=== PATIENT | female | born 1945 | race Caucasian/White ===

== ENCOUNTER 2021-05-04 08:46 | Day surgery (SDC) | payer OTHER, MEDICARE ==
[2021-05-04] MEDS ORDERED: Ringers Lactate 1,000 ML IV ONE (09:03)
[2021-05-04] MEDS ORDERED: ACETAMINOPHEN 500 MG TAB ONE (10:11)
[2021-05-04] MEDS ORDERED: propofoL 200 MG/20 ML VIAL IV ONE (10:26)
[2021-05-04] MEDS ORDERED: FENTANYL CITR 100 MCG/2 ML ONE (10:26)
[2021-05-04] MEDS ORDERED: MIDAZOLAM HCL 2 MG/2 ML INJ ONE (10:27)
[2021-05-04] MEDS ORDERED: LIDOCAINE 1% W/EPI 1:100,000 MDV 20 ML VIAL ONE (10:35)
[2021-05-04] MEDS ORDERED: dexAMETHasone 10 MG/ML VIAL ONE (11:10)
[2021-05-04] MEDS ORDERED: HOME MED 1 EA UNK (Fluticasone/Umeclidin/Vilanter [Trelegy Ellipta 200-62.5-25] Blst.W.Dev IH PRN (11:20)
[2021-05-04] MEDS ORDERED: HOME MED 1 EA UNK (Cetirizine Hcl [Zyrtec] 10 MG Capsule) PO PRN (11:20)
[2021-05-04] MEDS ORDERED: IBUPROFEN 200 MG TAB PO PRN (11:22)
--- NOTE | 2021-05-04 11:24 | P.BOP ---
Preoperative diagnosis: PMB Postoperative diagnosis: same Primary procedure: hysteroscopy d/c with myosure lite Production Counter: NONE,NONE Estimated blood loss: min Specimen: EMC Findings: empty cavity, slightly vascular lining, no masses Anesthesia: General Complications: None Transferred to: Recovery Room Condition: Good
[2021-05-04] MEDS ORDERED: ONDANSETRON 4 MG/2 ML VIAL ONE (11:26)
[2021-05-04] MEDS: FENTANYL CITR 100 MCG/2 ML ONE ×5 (11:34→12:29)
--- NOTE | 2021-05-04 11:51 | OP ---
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 Preoperative Diagnosis: Postmenopausal bleeding. Postoperative Diagnosis: Postmenopausal bleeding. Procedures Performed: Hysteroscopy, dilation and curettage with MyoSure Lite. Anesthesia: General with LMA. Specimens: Endometrial curettings. Findings: Cavity empty, slightly vascular lining. No masses. Condition: The patient's condition is stable. Estimated Blood Loss: Minimal. Brief History And Physical: The patient is an established patient in our practice, 76 years old, pre sented with postmenopausal bleeding, first episode. She was evaluated with transvaginal ultrasound. Endometrial stripe thickness was 6 mm. She was counseled on the need for endometrial sampling to ru le out atypia or malignancy. She does have risk factors, which include high BMI, so she was counsele d for getting the procedure here in the hospital for adequate sampling using the MyoSure Lite device that would definitely increase the amount of sample obtained at the D and C. She was consented after being counseled about the risks of bleeding and infection and perforation, br ought to the OR. Taken back to OR, placed in a supine fashion on the operating table. After general anesthesia was gi ankur, placed in dorsal lithotomy position using Stefan stirrups. Vulva and vagina prepped with Betadin e. Speculum placed to expose the cervix. Anterior lip grasped with 2 Allis clamps. [employer] diagno stic hysteroscope was introduced through the cervical canal and entered into the uterine cavity under direct visualization. Cavity was empty. The scope was pulled out, dilated to 16-[place]. Then, the MyoSure Lite scope was introduced after adequate visualization and priming the device. Then, the My oSure Lite cutting device was inserted through the operating channel and sampling was performed in th e entire endometrial cavity at the 360-degree fashion. No intracavitary masses. Both tubal ostia we ll visualized. The entire cavity appeared to be slightly vascular and after adequate sampling was pe rformed, device was taken out. All instruments were removed. EBL was minimal. Instrument, needle, and sponge counts were correct at the end of the case. The patient recovered from anesthesia and urban en to PACU in stable condition. She has a 1-week followup appointment at the office on pathology review. There is no atypia or malig alex. Then, plan is to observe her with a 6-month transvaginal ultrasound for a surveillance of her endometrial stripe and thereafter if no further bleeding occurs or no further thickening is noted, t hen just observation with re-evaluation when symptoms recur. If the endometrial tissue on pathology shows atypia or malignancy, then plan will be to offer a hysterectomy. If with atypia alone, then holden esteban can be offered the procedure here. She can also have an alternative of using levonorgestrel IUD fo r treatment and re-sampling, but if she is diagnosed with malignancy, then she will be referred to an oncologist. RACHEL Voice ID: [id number] Report ID: [id number]
[2021-05-04] MEDS ORDERED: IBUPROFEN 600 MG TAB PO SCH (12:00)
[2021-05-04 12:40] VITALS: O2SAT 99
[2021-05-04 13:31] VITALS: BP 136/72; TEMP 97.4
[2021-05-05] MEDS ORDERED: HOME MED 1 EA UNK (Rosuvastatin Calcium [Crestor] 20 MG Tablet) PO SCH (09:00)
[2021-05-05] MEDS ORDERED: HOME MED 1 EA UNK (Vit C/E/Zn/Coppr/Lutein/Zeaxan [Preservision Areds 2 Softgel] Capsule) PO SCH (09:00)
[2021-05-05] MEDS ORDERED: PANTOPRAZOLE 40MG TABLET PO SCH (09:00)
[2021-05-05] MEDS ORDERED: HOME MED 1 EA UNK (Cholecalciferol (Vitamin D3) [Vitamin D3] 25 MCG Capsule) PO SCH (09:00)
[2021-05-05] MEDS ORDERED: HOME MED 1 EA UNK (Lactobacillus Acidophilus [Probiotic] Capsule) PO SCH (09:00)
[2021-05-05] MEDS ORDERED: HOME MED 1 EA UNK (Multivitamin [Multivitamin] Tablet) PO SCH (09:00)
== END 2021-05-04 13:30 | disposition home or self-care (01) ==
LOC: OR 08:46
PROVIDERS: ATTEND Obstetrics & Gynecology
PROC: 0UJD8ZZ Inspection of Uterus and Cervix, Via Natural or Artificial Opening Endoscopic (ICD-10-PCS; 2021-05-04)
PROC: 0UDB7ZX Extraction of Endometrium, Via Natural or Artificial Opening, Diagnostic (ICD-10-PCS; principal; 2021-05-04 10:30)
DX: N95.0 Postmenopausal bleeding (principal); Z20.822 Contact with and (suspected) exposure to COVID-19
CPT/HCPCS: 58558; 88305; U0002; J2704; J2250; J3010 ×2; J1100; J7120; J2405

== ENCOUNTER 2021-09-10 12:14 | Emergency (ER) | payer OTHER, MEDICARE ==
--- OUTSIDE RECORDS SUMMARY | 2021-09-10 12:17 | XMS REPORT | Continuity of Care Document ---
:1945 Author Organization [facility] t Address [facility] [place] [address] Care Team Providers Name Role Phone Dori Attending Clinician Unavailable Krista Anand Attending Clinician Unavailable Crystal Attending Clinician Unavailable Grace Attending Clinician Unavailable Radha Borjas Attending Clinician Unavailable Krista Anand Admitting Clinician Unavailable Physician, Primary or Family Admitting Clinician Unavailabl e Payers Payer Name Policy Type Policy Number Effective Date Expiration Date S ource Problems This patient has no known problems. Allergies, Adverse Reactions, Alerts Allergy Allergy Status Severity Reaction(s) Onset Inactive Treating Comm ents Source Name Type Date Date Clinician No Known DA Active [facility] 08[facility] No Known DA Active [facility] All[facility]ie 08-11 s 00:[facility] No Known DA Active [facility] Allergie 07-29 [place] 00[place] [facility] No Known DA Active [facility] Allergie 04-25 s 00:00: [facility] No Known DA Active [facility] Allergie 04-25 s 00:00: [facility] codeine Adverse Active Caused her Comm on Reaction not to be Spiri t able to go - [facility] to [facility] Medications Ordered Filled Start Stop Current Ordering Indication Dosage Frequency Signature Comments Components Source Medication Medication Date Date Medication? Clinician (SIG) Name Name Ultram Ultram Yes Jacklyn 1 tablet Common Millender as needed [facility] Ciprofloxac Ciprofloxac Yes Jacklyn 1 tablet Common in HCl in HCl Millender [facility] Celebrex Celebrex Yes Jacklyn 1 capsule C ommon Millender with food [facility] Magnesium Magnesium Yes Jacklyn not Comm on Millender defined [facility] Prilosec Prilosec Yes Jacklyn 1 capsule C ommon Millender [facility] PreserVisio PreserVisio Yes Jacklyn not Common n AREDS 2 n AREDS 2 Millender defined [facility] Fish Oil Fish Oil Yes Jacklyn 1 capsule C ommon Millender [facility] Methocarbam Methocarbam Yes Jacklyn 1 tablet Common ol ol Millender [facility] Advil Advil Yes Jacklyn 1 tablet Common Millender with food Spiri t or milk as - [facility] needed [facility] Arnuity Arnuity Yes Jacklyn 1 puff Common Ellipta Ellipta Millender [facility] Meloxicam Meloxicam Yes Jacklyn 1 tablet Common Millender [facility] Amitiza Amitiza Yes Jacklyn 1 capsule Com mon Millender with food [facility] Voltaren Voltaren Yes Jacklyn not Common Millender defined [facility] Xarelto Xarelto Yes Jacklyn 1 tablet Comm on Millender with food [facility] ProAir HFA ProAir HFA Yes Jacklyn 2 puffs as Common Millender needed [facility] Vitamin E Vitamin E Yes Jacklyn 1 capsule Common Millender [facility] Gabapentin Gabapentin Yes Jacklyn 1 capsule Common Millender [facility] Topamax Topamax Yes Jacklyn 1 tablet Comm on Millender [facility] Probiotic Probiotic Yes Jacklyn 2 capsules Common Millender [facility] Levofloxaci Levofloxaci Yes Jacklyn 1 tablet Common n n Millender [facility] Qvar Qvar Yes Jacklyn 1 puff Common Millender [facility] Singulair Singulair Yes Jacklyn 1 tablet Common Millender in the [facility] Multivitami Multivitami Yes Jacklyn 2 tablets Common n n Millender [facility] Calcium Calcium Yes Jacklyn not Common Millender defined [facility] Mobic Mobic 2019- No Jacklyn 1 tablet Common 05-31 Millender as needed Spir it 00:00 for pain - [facility] : [facility] Procedures This patient has no known procedures. Encounters Start End Encounter Admission Attending Care Care Encounter Source Date/Time Date/Time Type Type Clinicians Facility Department ID 2021-09-02 Outpatient [facility] [place] [employer] [id number] Common 13:57:01 Madelaine [facility] 2021-07-29 Outpatient Cheng, HCATO HCATO [id number] [facility] 15:28:45 Inder [facility] [place] [facility] 2021-05-26 Outpatient Cheng, HCATO HCATO [id number] [facility] 14:14:27 Inder 92 [place] [facility] 2021-05-12 Outpatient Dori STLATASHALC [facility] [id number] Common 12:48:55 Madeliane 17051 [facility] 2021-05-12 Outpatient Crystal [facility] [employer] [id number] Common 11:53:20 Jacklyn 35217 [facility] 2021-09-06 2021-09-06 ambulatory STLC [facility] [id number] Common 00:00:00 00:00:00 [facility] 2021-08-12 2021-08-12 Outpatient EL Cheng, HCATO PAIN [id number] [facility] 12:44:00 12:44:00 Inder [id number] [place] [facility] 2021-08-12 2021-08-12 Outpatient EL Cheng, HCATO PAIN [id number] [facility] 12:44:00 12:44:00 Inder 00 [place] [facility] 2021-07-29 2021-07-29 Outpatient EL Cheng, HCATO PAIN [id number] [facility] 11:59:00 11:59:00 Inder [id number] [place] [facility] 2021-07-20 2021-07-20 ambulatory STLMLC STL[facility] [id number] Common 00:00:00 00:00:00 [facility] 2021-07-19 2021-07-19 ambulatory STLMLC STLMLC [id number] Common 00:00:00 00:00:00 [facility] 2021-07-12 2021-07-12 ambulatory STLMLC STLMLC [id number] Common 00:00:00 00:00:00 [facility] 2021-06-22 2021-06-22 ambulatory STLMLC STLMLC [id number] Common 00:00:00 00:00:00 [facility] 2021-06-09 2021-06-09 ambulatory STLMLC STLMLC [id number] Common 00:00:00 00:00:00 [facility] 2021-06-09 2021-06-09 ambulatory STLMLC STLMLC [id number] Common 00:00:00 00:00:00 [facility] 2021-05-26 2021-05-26 Outpatient EL Cheng, HCATO PAIN [id number] [facility] 11:17:00 11:17:00 Inder [id number] [place] [facility] 2021-05-17 2021-05-17 ambulatory STLMLC STLMLC [id number] Common 00:00:00 00:00:00 [facility] 2021-04-15 2021-04-15 ambulatory STLMLC STLMLC [id number] Common 00:00:00 00:00:00 [facility] 2021-03-16 2021-03-16 ambulatory STLMLC STLMLC [id number] Common 00:00:00 00:00:00 [facility] 2021-02-25 2021-02-25 ambulatory STLMLC STLMLC [id number] Common 00:00:00 00:00:00 [facility] 2020-11-25 2020-11-25 Outpatient STLMLC STLMLC [id number] Common 00:00:00 00:00:00 [facility] 2020-08-26 2020-08-26 Outpatient OBDULIA Pate [id number] [facility] 11:41:00 11:41:00 Win [id number] [place] [facility] 2020-08-11 2020-08-11 Outpatient STLMLC STLMLC [id number] Common 00:00:00 00:00:00 [facility] 2020-01-24 2020-01-24 Outpatient STLMLC STLMLC [id number] Common 00:00:00 00:00:00 [facility] 2019-09-30 2019-09-30 [facility] [id number] Common 13:00:00 13:00:[address] [facility] 2019-02-27 2019-02-27 [facility] [id number] Common 13:00:00 13:00:[address] [facility] 2018-12-19 2018-12-19 [facility] [id number] Common 16:32:00 16:32:[address] [facility] 2018-11-16 2018-11-16 [facility] [id number] Common 08:17:00 08:17:[address] [facility] 2018-11-14 2018-11-14 [facility] [id number] Common 14:40:00 14:40:[address] [facility] 2018-07-26 2018-07-26 [facility] [id number] Common 13:12:00 13:12:[address] [facility] 2018-05-16 2018-05-16 [facility] [id number] Common 14:23:00 14:23:[address] [facility] 2017-10-24 2017-10-24 [facility] [id number] Common 19:20:00 19:20:[address] [facility] [address] [facility] 2017-10-23 2017-10-23 [facility] [id number] Common 15:31:00 15:31:[address] [facility] [address] [facility] 2017-10-16 2017-10-16 [facility] [id number] Common 15:18:00 15:18:[address] [facility] [address] [facility] 2017-08-23 2017-08-23 Outpatient [facility] [id number] Common 21:29:00 21:29:[address] [facility] [address] [facility] 2017-08-23 2017-08-23 Outpatient [place] [facility] [id number] Common 13:30:00 13:30:[address] [facility] [address] [facility] Results Test Description Test Time Test Comments Results Result [facility] Comments - XR FLUORO FOR 2021-08-12 SPINE INJ 17:24:00 [facility] 1945 Sex: F Patient Name: ALONSO POLK Unit No: [id number] EXAMS: CPT CODE: [id number] XR FLUORO FOR SPINE INJ 60052 LUMBAR FACET INJECTION DIAGNOSTIC REFERRAL PHYSICIAN: None PREOPERATIVE DIAGNOSIS: Lumbar spondylosis without myelopathy or radiculopathy POSTOPERATIVE DIAGNOSIS: Lumbar spondylosis without myelopathy or radiculopathy PROCEDURE PERFORMED: Fluoroscopically guided needle localization of the bilateral L4/5 and left L3/4 facets with arthrograms and diagnostic injection of local anesthetic and steroid. FINDINGS: Good flow of dye into all 3 facet joints. Significant arthritic changes noted in all of the above. Contrast is seen to fill all 3 joint however. Preinjection VAS 2/10. Postinjection VAS 0/10. Steroid response pending follow-up. ESTIMATED BLOOD LOSS: Minimal ANESTHESIA: TIVA COMPLICATIONS: None DETAILS OF PROCEDURE: After obtaining stable vital signs, informed consent and IV access patient was taken to the fluoroscopy suite where the patient was placed in a prone position with all extremities padded and appropriate monitors placed. The patient was sterilely prepped prepped and draped over the lumbosacral spine. Using fluoroscopic visualization, the insertion sites were marked for a paravertebral approach to each joint. Using standard technique, a 25 -gauge needle was inserted into each joint capsule without paresthesias. At all levels, aspiration was negative for clear serous fluid. Isovue-300 contrast 0.2 mL was injected to produce each arthrogram. There were no signs of intravascular or intrathecal uptake. Bupivicaine 0.75% 0.17 mL with Lidocaine 4% 0.17 ml and triamcinolone 26 mg was then injected incrementally into each joint. There were no signs of intravascular or intrathecal uptake. The patient's vital signs remained stable. All needles were removed and the patient was taken to the PACU in good condition. Image: Image 1 Image: Image 2 Image: Image 3 Image: Image 4 at 1724 Reported and signed by: INDER ANAND MD [facility] NAME: FELICITAS,ALONSOCHELA RIVERA [address] [facility] PHYS: Inder [address] MD [place], [place] [address] : 1945 AGE: 76 SEX: F LOC: VandanaLISA PHONE #: [phone] EXAM DATE: 08/12/2021 STATUS: REG [facility] FAX #: [phone] RAD #: D/C DT PAGE 1 Signed Report (CONTINUED) Patient Name: ABDON POLKCHELA RIVERA Unit No: [id number] EXAMS: CPT CODE: [id number] XR FLUORO FOR SPINE INJ 33748 <Continued> CC: Technologist: Sahhla Otto(R) Transcribed D/ (1723) RadhaA2 [facility] NAME: ALONSO POLK [address] [facility] PHYS: Inder Way MD [place] [address] : 1945 AGE: 76 SEX: F LOC: FOUZIA PHONE #: [phone] EXAM DATE: 08/12/2021 STATUS: REG [facility] FAX #: [phone] RAD #: D/C DT PAGE 2 Signed Report Patient Name: ALONSO POLK Unit No: [id number] EXAMS: CPT CODE: [id number] XR FLUORO FOR SPINE INJ 30102 <Continued> Orig Print D/T: S: 08/12/2021 (573) [facility] NAME: ALONSO POLK [address] [place] [address] PHYS: Inder [address] MD [place] [address] : 1945 AGE: 76 SEX: F LOC: FOUZIA PHONE #: [phone] EXAM DATE: 08/12/2021 STATUS: REG [facility] FAX #: [phone] RAD #: D/C DT PAGE 3 Signed Report - XR FLUORO FOR 2021-07-29 SPINE INJ 15:25:00 [facility] 1945 Sex: F Patient Name: ALONSO POLK Unit No: [id number] EXAMS: CPT CODE: [id number] XR FLUORO FOR SPINE INJ 56204 LUMBAR DISCOGRAM AND INTRADISCAL INJECTION REFERRING PHYSICIAN: Dr. Borjas PREOPERATIVE DIAGNOSIS: Discogenic low back pain POSTOPERATIVE DIAGNOSIS: Discogenic low back pain. PROCEDURE PERFORMED: 1. Fluoroscopically guided needle localization of the L1/2 L3/4 L5/S1 discs with provocative discography and therapeutic intradiscal injection of local anesthetic and steroid. FINDINGS: The L5/S1 disc level is 80-90% collapsed. There is diffuse changes throughout this area with endplate spurring. The L3/4 disc level is approximately 30-40% collapsed with diffuse degenerative change throughout this level of disc as well without significant endplate spurring. The L1/2 level is approximately 50-60% collapsed with inferior 1 and superior to endplate spurring again with diffuse degenerative changes seen in the contrast pattern. Provocation injection of all 3 was negative. Preinjection VAS 6/10. Postinjection VAS 0/10. Steroid response pending follow-up. ANTIBIOTIC: Clindamycin IV and intradiscal. ESTIMATED BLOOD LOSS: Minimal ANESTHESIA: TIVA COMPLICATIONS: None DETAILS OF PROCEDURE: After obtaining stable vital signs, informed consent and IV access, with no contraindications to proceeding, the patient received preoperative antibiotics and was taken to the fluoroscopy suite where the patient was placed in a prone position with all extremities padded and appropriate monitors placed. The patient was sterilely prepped and draped over the lumbosacral spine. Under fluoroscopic visualization the selected discs were visualized and the insertion sites were marked for paramedian approaches. Using standard double needle no-touch technique, a 20 gauge spinal introducer needle was advanced to the level of the facets and a curved 25-gauge needle was then passed through the introducer and advanced into the center of each disc without paresthesias. Isovue 300 contrast 0.2 ml with clindamycin 150 mg/mL, 0.2 ml was then injected to produce each discogram. Bupivacaine 0.75% 0.33 mL with lidocaine 4% 0.33 ml with triamcinolone 27 mg was then injected, provocation was recorded and the needles were removed. There were no signs of intravascular or intrathecal uptake. The patient's vital signs remained stable. The patient was taken to the PACU in good condition. [facility] NAME: ALONSO POLK [address] [facility] PHYS: Inder Way MD [place], [place] [address] : 1945 AGE: 76 SEX: F LOC: FOUZIA PHONE #: [phone] EXAM DATE: 07/29/2021 STATUS: REG [facility] FAX #: [phone] RAD #: D/C DT PAGE 1 Signed Report (CONTINUED) Patient Name: ALONSO POLK Unit No: [id number] EXAMS: CPT CODE: [id number] XR FLUORO FOR SPINE INJ 20026 <Continued> Image: Image 1 Image: Image 2 Image: Image 3 Image: Image 4 at 1525 Reported and signed by: INDER ANAND MD CC: Technologist: Shahla Otto(R) Transcribed D/ (1525) KelsyJMA2 [facility] NAME: ALONSO POLK [address] [facility] PHYS: Inder Way MD [place], [place] [address] : 1945 AGE: 76 SEX: F LOC: FOUZIA PHONE #: [phone] EXAM DATE: 07/29/2021 STATUS: REG [facility] FAX #: [phone] RAD #: D/C DT PAGE 2 Signed Report Patient Name: ALONSO POLK Unit No: [id number] EXAMS: CPT CODE: [id number] XR FLUORO FOR SPINE INJ 56456 <Continued> Orig Print D/T: S: 07/29/2021 (1528) [facility] NAME: ALONSO POLKHAW [address] [facility] PHYS: Inder Way MD [place], [place] [address] : 1945 AGE: 76 SEX: F LOC: FOUZIA PHONE #: [phone] EXAM DATE: 07/29/2021 STATUS: REG [facility] FAX #: [phone] RAD #: D/C DT PAGE [address] SPECT ( EG, 2021-07-16 HEAD, NECK, 14:35:55 CHEST, PELVIS) [facility] [[id number]] ALONSO POLK : 1945 Sex: F CLINICAL INDICATION: M47.812 Spondylosis without myelopathy or radiculopathy, cervical musparA20.36 Other intervertebral disc degeneration, lumbar regionMODALITY: Discovery NM/CT 670TECHNIQUE: 25 mCi Tc 99m MDP are injected IV. After a suitable time delay, whole body imaging images were obtained. SPECT imaging of the cervical and lumbar spine is performed with computer and physician-assisted 2-D and 3-D reconstruction. Co-registered low dose limited diagnostic CT images are obtained at the level of SPECT imaging.Computed Tomography Dose Index: 5.44 mGy.FINDINGS:COMPARISON : Fusion CT exam.CT Comments: None.Symmetric bilateral renal function is observed.Mild to moderate periodontal uptake is noted bilateral maxilla.Mild to moderate arthritic changes are most prominent bilateral shoulders. Bilateral total knees are visible.SPECT CT fusion imaging of the cervical spine demonstrates mild to moderate versus moderate median atlanto-axial joint uptake. Moderate bilateral C5-6 intervertebral disc uptake is seen. Mild to moderate uptake is noted at the left C4-5 facet and left C7-T1 facet. Mild to moderate versus moderate uptake is present at the right T2 costovertebral junction. Moderate uptake is noted within the right anterior lateral bridging osteophytes at the mid and lower thoracic spine.SPECT CT fusion imaging of the lumbar spine demonstrates moderate uptake right lateral L5-S1 intervertebral disc, moderate uptake left L 34 intervertebral disc, moderate uptake right L1-2 intervertebral disc. Mild to moderate right L3-4 facet, moderate left L3-4 facet, moderate left L4-5 facet uptake is otherwise most conspicuous.IMPRESSION: See comments above.PQRS 147: 3570F (For office use only). - XR FLUORO FOR 2021-05-26 SPINE INJ 14:11:00 [facility] [place] [facility] 1945 Sex: F Patient Name: ALONSO POLK Unit No: [id number] EXAMS: CPT CODE: [id number] XR FLUORO FOR SPINE INJ 22344 LUMBAR EPIRADICULAR INJECTION REFERRAL PHYSICIAN: Dr. Borjas PREOPERATIVE DIAGNOSIS: Lumbar Radiculitis POSTOPERATIVE DIAGNOSIS: Lumbar radiculitis with degenerative disc disease and endplate disease PROCEDURES PERFORMED: Fluoroscopically guided needle localization of the bilateral L5 and bilateral S1 spinal nerves with transforaminal epidurograms and epidural injection of local anesthetic and steroid. FINDINGS: Good flow of dye through all 4 neuroforamen. L5 needles were limited secondary to body habitus. Lateral view also very limited by body habitus. Preinjection VAS 8/10. Postinjection VAS 0/10. Steroid response pending follow-up. ESTIMATED BLOOD LOSS: Minimal ANESTHESIA: TIVA COMPLICATIONS: None DETAILS OF PROCEDURE: After obtaining stable vital signs, informed consent and IV access, with no contraindications, the patient was taken to the operating room and placed in a prone position with all extremities padded and appropriate monitors placed. The patient was sterilely prepped and draped over the lumbosacral spine. Using fluoroscopic visualization the insertion sites were marked for paravertebral approaches and using standard technique, a 22 gauge needle was advanced to the base of each pedicle without paresthesias. Isovue-300 contrast 0.2 mL of was injected incrementally with frequent negative aspirations to produce each epidurogram. There were no signs of intravascular or intrathecal uptake. Bupivicaine 0.75% 0.25 mL with lidocaine 4% 0.25 mL and Decadron 5 mg was then incrementally injected with frequent negative aspirations and again there were no signs of intravascular or intrathecal uptake. The needles were removed and the patient was taken to the PACU in good condition. Image: Image 1 Image: Image 2 Image: Image 3 at 1411 Reported and signed by: INDER ANAND MD CC: Technologist: Shahla Otto(R) Transcribed D/ (1410) KelsyJMA2 [facility] NAME: ALONSO POLK [address] [place] [address] PHYS: In[address] [place], [place] [address] : 1945 AGE: 76 SEX: F LOC: FOUZIA PHONE #: [phone] EXAM DATE: 05/26/2021 STATUS: REG [facility] FAX #: [phone] RAD #: D/C DT PAGE 1 Signed Report Patient Name: ALONSO POLK Unit No: [id number] EXAMS: CPT CODE: [id number] XR FLUORO FOR SPINE INJ 12082 <Continued> Orig Print D/T: S: 05/26/2021 (6499) [facility] NAME: ALONSO POLK [address] [place] [address] PHYS: In[address] [place], [place] [address] : 1945 AGE: 76 SEX: F LOC: FOUZIA PHONE #: [phone] EXAM DATE: 05/26/2021 STATUS: REG [facility] FAX #: [phone] RAD #: D/C DT PAGE 2 Signed Report - MRI L-SPINE W/O 2020-08-26 CONT 16:26:00 [facility] : 1945 Sex: F Patient Name: ALONSO POLK Unit No: [id number] EXAMS: CPT CODE: [id number] MRI L-SPINE W/O CONT 61208 DIAGNOSIS: 1. At L1-2 there is a mild retrolisthesis and associated disc bulging which lateralizes 3 mm right posterior lateral and foraminal. Moderate right foraminal narrowing is seen with mild left-sided stenosis. No central canal stenosis is seen. Facet degeneration is present. 2. At L2-3 there is 2 mm of disc bulging with mild foraminal narrowing. Slight narrowing of the central canal is present with facet and ligamentum flavum hypertrophic and degenerative change. 3. At L3-4 there is 2 mm of broad-based disc with mild foraminal narrowing on the left and slight narrowing on the right. Mild narrowing of the central canal is seen with facet and ligamentum flavum hypertrophic and degenerative change and there is bilateral lateral recess stenosis. 4. At L4-5 there is a slight degenerative spondylolisthesis with endplate spur formation and disc bulging. Mild foraminal narrowing is seen. Mild narrowing of the central canal is present with bilateral lateral recess stenosis. Facet and ligamentum flavum hypertrophic and degenerative changes are present. 5. At L5-S1 there is disc bulging and endplate spur formation with moderate right and mild left foraminal narrowing. Facet degeneration is seen without central canal stenosis. COMMENT: COMPARISON: No prior exams available. Scans were performed in the sagittal and axial planes utilizing T1, T2 and inversion recovery images. Endplate and disc degeneration is present at all levels. Disc configurations are as described. Spondylitic changes are as noted. The conus is in the expected location. The description these findings assumes a normal count of 5 lumbar type vertebra. at 1626 Reported and signed by: Isaiah Casarez MD CC: Win Borjas MD Technologist: STEPHANIE KLEIN.MRI,CT Transcribed D/ (1625) JavadL [facility] NAME: ALONSO POLK GALLIANO [address] [place] [address] PHYS: HARCLAUDETTE.Win Rosenbaum MD : 1945 AGE: 75 SEX: F [place] [address] LOC: Y.MRI PHONE #: [phone] EXAM DATE: 08/26/2020 STATUS: REG CLI FAX #: [phone] RAD #: D/C DT PAGE 1 Signed Report Patient Name: ALONSO POLK GALLIANO Unit No: [id number] EXAMS: CPT CODE: [id number] MRI L-SPINE W/O CONT 07111 <Continued> Orig Print D/T: S: 08/26/2020 (180) [facility] NAME: FELICITASABDON SILVEIRA[address] PHYS: HARJO.Caitlin - Win Borjas MD : 1945 AGE: 75 SEX: F [place] [address] LOC: Y.MRI PHONE #: [phone] EXAM DATE: 08/26/2020 STATUS: REG CLI FAX #: [phone] RAD #: D/C DT PAGE 2 Signed Report
[2021-09-10] MEDS ORDERED: HYDROCODONE/APAP 10/325 TAB ONE (13:54)
--- NOTE | 2021-09-10 14:30 | RAD REPORT ---
EXAM DESCRIPTION: RAD - Hip Left 2 View - 09/10/2021 2:23 pm CLINICAL HISTORY: PAIN COMPARISON: No comparisons FINDINGS/IMPRESSION: No acute fracture. No malalignment. Mild to moderate left acetabular degenerati ve changes.
--- NOTE | 2021-09-10 15:35 | ER ---
Nurse's Notes [facility] Name: Rodolfo Arredondo Age: 76 yrs Sex: Female : 1945 Arrival Date: 09/10/2021 Time: 12:18 Bed DIS3 Private MD: Madelaine Meadows Diagnosis: Pain in left hip Presentation: 09/10 13:46 Chief complaint: Patient states: left hip pain. iw 13:46 Acuity: CY 4 iw 16:02 Coronavirus screen: At this time, the client does not indicate any symptoms associated ap3 with coronavirus-19. Ebola Screen: No symptoms or risks identified at this time. Initial Sepsis Screen: Does the patient meet any 2 criteria? No. Patient's initial sepsis screen is negative. Does the patient have a suspected source of infection? No. Patient's initial sepsis screen is negative. Risk Assessment: Do you want to hurt yourself or someone else? Patient reports no desire to harm self or others. Onset of symptoms is unknown. 16:02 Method Of Arrival: Wheelchair ap3 Triage Assessment: 16:02 General: Appears in no apparent distress. Behavior is calm, cooperative, appropriate ap3 for age. Pain: Complains of pain in left hip. Historical: - Allergies: 16:01 No Known Allergies; ap3 - PMHx: 16:01 Asthma; Back pain; constipation; hot flashes; dry eyes; High Cholesterol; macular ap3 degeneration; - Immunization history:: Adult Immunizations unknown. - Social history:: Smoking status: unknown. Screenin:01 Abuse screen: Denies threats or abuse. Nutritional screening: No deficits noted. ap3 Tuberculosis screening: No symptoms or risk factors identified. 16:02 Fall Risk Fall in past 12 months (25 points). Secondary diagnosis (15 points) No IV (0 ap3 pts). Ambulatory Aid- Crutches/Cane/Walker (15 pts). Gait- Weak (10 pts.). Mental Status- Oriented to own ability (0 pts). Vital Signs: 13:29 Pulse 87; Resp 18; Temp 97.3; Pulse Ox 100% ; Weight 132 kg (R); Height 5 ft. 4 in. iw (162.56 cm) (R); Pain 6/10; 13:35 BP 136 / 51; iw 13:29 Body Mass Index 49.95 (132.00 kg, 162.56 cm) ED Course: 12:18 Patient arrived in ED. am2 12:18 Madelaine Meadows FNP-C is Private Physician. am2 12:38 Mohsen Doyle PA is PHCP. cp 12:38 Darren Bourgeois MD is Attending Physician. cp 13:39 Patient has correct armband on for positive identification. mb7 13:39 Warm blanket given. mb7 13:46 Raven Richards, RN is Primary Nurse. iw 13:47 Triage completed. iw 14:23 XRAY Hip LEFT 2 view In Process Unspecified. EDMS 16:02 No provider procedures requiring assistance completed. Patient did not have IV access ap3 during this emergency room visit. 16:03 Arm band placed on right wrist. ap3 Administered Medications: 13:50 Drug: Hydrocodone-Acetaminophen (10 mg-650 mg) 1 tabs Route: PO; iw Medication: 16:02 VIS not applicable for this client. ap3 Outcome: 15:34 Discharge ordered by MD. cp 16:01 Discharged to home via wheelchair. ap3 16:01 Condition: good 16:01 Discharge instructions given to patient, Instructed on discharge instructions, follow up and referral plans. medication usage, Demonstrated understanding of instructions, follow-up care, medications, Prescriptions given X 2. 16:03 Patient left the ED. ap3 Signatures: Dispatcher [employer] EDRaven Acevedo, RN RN iw Mohsen Doyle PA PA Gaby Mejia am2 Gaby Pack RN RN ap3 Christiana Wells mb7 Corrections: (The following items were deleted from the chart) 15:56 15:56 Patient has correct armband on for positive identification. mb7 mb7
--- NOTE | 2021-09-10 15:35 | EDPHYS ---
Physician Documentation [facility] Name: Rodolfo Arredondo Age: 76 yrs Sex: Female : 1945 Arrival Date: 09/10/2021 Time: 12:18 Bed DIS3 Private MD: Madelaine Meadows ED Physician Darren Bourgeois HPI: 09/10 13:40 This 76 yrs old Female presents to ER via Unassigned with complaints of Leg Pain. cp 13:40 The patient presents with pain, that is acute. cp Historical: - Allergies: 16:01 No Known Allergies; ap3 - PMHx: 16:01 Asthma; Back pain; constipation; hot flashes; dry eyes; High Cholesterol; macular ap3 degeneration; - Immunization history:: Adult Immunizations unknown. - Social history:: Smoking status: unknown. Vital Signs: 13:29 Pulse 87; Resp 18; Temp 97.3; Pulse Ox 100% ; Weight 132 kg (R); Height 5 ft. 4 in. iw (162.56 cm) (R); Pain 6/10; 13:35 BP 136 / 51; iw 13:29 Body Mass Index 49.95 (132.00 kg, 162.56 cm) iw MDM: 15:34 Patient medically screened. cp 09/10 13:32 Order name: XRAY Hip LEFT 2 view; Complete Time: 15:21 cp 09/10 15:21 Interpretation: Report reviewed. cp Administered Medications: 13:50 Drug: Hydrocodone-Acetaminophen (10 mg-650 mg) 1 tabs Route: PO; iw Disposition Summary: 09/10/21 15:34 Discharge Ordered Location: Home cp Problem: new cp Symptoms: have improved cp Condition: Stable cp Diagnosis - Pain in left hip cp Followup: cp - With: Private Physician - When: 2 - 3 days - Reason: Recheck today's complaints Discharge Instructions: - Discharge Summary Sheet cp - Hip Pain cp Forms: - Medication Reconciliation Form cp - Thank You Letter cp - Antibiotic Education cp - Prescription Opioid Use cp Prescriptions: - Mobic 7.5 mg Oral Tablet - take 1 tablet by ORAL route once daily take with food; 20 tablet; Refills: 0, cp Product Selection Permitted - Ultracet 37.5-325 mg Oral Tablet - take 1 tablet by ORAL route every 6 hours - for up to 5 days; do not exceed 8 cp tablets per day.; 20 tablet; Refills: 0, Product Selection Permitted Addendum: 09/12/2021 23:53 Co-signature as Attending Physician, Darren Bourgeois MD. r n Signatures: Dispatcher [employer] Raven Asher, RN Darren Navarrete MD MD rn Page, Corey, PA PA cp Prokisch, Amanda, RN RN ap3
[2021-09-10 16:09] VITALS: TEMP 97.3; O2SAT 100
[2021-09-10 16:10] VITALS: BP 136/51
== END 2021-09-10 16:03 | disposition home or self-care (01) ==
LOC: ER 12:14
DX: M25.552 Pain in left hip (principal)
CPT/HCPCS: 99283

== ENCOUNTER 2021-10-28 23:16 | Emergency (ER) | payer OTHER, MEDICARE ==
--- NOTE | 2021-10-29 02:07 | ER ---
Nurse's Notes [facility] Name: Rodolfo Arredondo Age: 76 yrs Sex: Female : 1945 Arrival Date: 10/28/2021 Time: 23:18 Bed 14 Private MD: Diagnosis: Fall due to bumping against object;Contusion of right lower leg;Contusion of right foot Presentation: 10/28 23:42 Chief complaint: Patient states: I had fallen at home while i was getting dressed and i kd3 was holding onto the walker when the walker tipped and i fell. I hit my head on the dresser but that doesn't hurt and i did not have any LOC. the only thing that hurts is my right leg and foot. I had fallen on top of it. I am not on any blood thinners. Coronavirus screen: Vaccine status:. Ebola Screen: No symptoms or risks identified at this time. Initial Sepsis Screen: Does the patient meet any 2 criteria? No. Patient's initial sepsis screen is negative. Does the patient have a suspected source of infection? No. Patient's initial sepsis screen is negative. Risk Assessment: Do you want to hurt yourself or someone else? Patient reports no desire to harm self or others. Onset of symptoms was October 28, 2021. 23:42 Method Of Arrival: Wheelchair kd3 23:42 Acuity: CY 3 kd3 Triage Assessment: 23:46 General: Appears in no apparent distress. Behavior is calm, cooperative. Pain: kd3 Complains of pain in lateral aspect of right calf and dorsum of right foot. Historical: - Home Meds: 23:46 acetaminophen 325 mg Oral tab 2 tabs every 4-6 hours [Active]; celecoxib 200 mg Oral kd3 cap 1 cap once daily [Active]; Fish Oil 1000mg [place] 3 300mg daily [Active]; Estroven Oral [Active]; Magnesium 500mg daily [Active]; Metamucil Tabs 5 tab twice a day [Active]; Colace 100 mg Oral cap 2 caps once daily [Active]; PreserVision AREDS 2 056-675-69-1 fz-[id number]-[id number]-mg Oral cap twice a day [Active]; simvastatin 20 mg Oral tab 1 tab once daily [Active]; Restasis 0.05 % ophthalmic dpet 1 drop 2 times per day [Active]; Singulair 10 mg Oral tab 1 tab once daily [Active]; tramadol 50 mg Oral tab [Active]; Vitamin D3 2,000 unit Oral cap daily [Active]; topiramate 100 mg Oral CSpX 1 cap twice a day [Active]; multivitamin Oral tab daily [Active]; vitamin E 400 unit Oral cap daily [Active]; Calcium- Vitamin D3 1200mg/1000IU daily [Active]; Arnuity Ellipta 200 mcg/actuation inhalation dsdv 1 puff once daily [Active]; - PMHx: 23:46 Asthma; Back pain; constipation; High Cholesterol; hot flashes; macular degeneration; kd3 dry eyes; - Immunization history:: Adult Immunizations up to date. - Social history:: Smoking status: unknown. Screenin:47 Abuse screen: Denies threats or abuse. Denies injuries from another. Nutritional kd3 screening: No deficits noted. Tuberculosis screening: No symptoms or risk factors identified. Fall Risk Fall in past 12 months (25 points). Gait- Weak (10 pts.). Assessment: 23:48 Neuro: Parrish Agitation-Sedation Scale (RASS): 0 - Alert and Calm Level of kd3 Consciousness is awake, alert, obeys commands, Oriented to person, place, time, situation. Respiratory: Airway is patent Trachea midline Respiratory effort is even, unlabored, Respiratory pattern is regular, symmetrical. Vital Signs: 23:42 BP 115 / 73; Pulse 105; Resp 18; Temp 98.3; Pulse Ox 98% on R/A; Weight 131.54 kg; kd3 Height 5 ft. 4 in. (162.56 cm); 23:54 BP 138 / 90; Pulse 94; Resp 18; Pulse Ox 98% ; kd3 10/29 01:02 Pulse 98; Resp 16; Pulse Ox 100% ; kd3 01:02 BP 147 / 68; kd3 02:18 BP 135 / 62; Pulse 98; Resp 18; Pulse Ox 100% on R/A; kd3 10/28 23:42 Body Mass Index 49.78 (131.54 kg, 162.56 cm) kd3 ED Course: 10/28 23:18 Patient arrived in ED. bp1 23:26 Shravan Borrego MD is Attending Physician. 7 23:46 Triage completed. kd3 23:46 Arm band placed on right wrist. kd3 23:47 Patient has correct armband on for positive identification. kd3 23:47 No provider procedures requiring assistance completed. kd3 23:54 Roxann Goodrich, RN is Primary Nurse. kd3 10/29 00:34 Tib Fib Right XRAY In Process Unspecified. EDMS 00:34 Ankle Right 3 View XRAY In Process Unspecified. EDMS 00:34 Foot Right 3 View XRAY In Process Unspecified. EDMS 01:08 CT Head Brain wo Cont In Process Unspecified. EDMS 02:05 Luis Felix MD is Referral Physician. [facility] Administered Medications: No medications were administered Medication: 10/28 23:55 VIS not applicable for this client. kd3 Outcome: 10/29 02:07 Discharge ordered by . [facility] 02:22 Patient left the ED. kd3 Signatures: Dispatcher [employer] EDMT Danica Ding Maurice, MD MD [facility] Roxann Goodrich, RN RN kd3
--- NOTE | 2021-10-29 02:07 | EDPHYS ---
Physician Documentation [facility] Name: Rodolfo Arredondo Age: 76 yrs Sex: Female : 1945 Arrival Date: 10/28/2021 Time: 23:18 Bed 14 Private MD: ED Physician Shravan Borrego HPI: 10/28 23:49 This 76 yrs old Female presents to ER via Wheelchair with complaints of Fall Injury. [facility] 23:49 Details of fall: The patient fell from an upright position, while walking. Onset: The [facility] symptoms/episode began/occurred today, at 21:00. Associated injuries: The patient sustained injury to the head, abrasion, lateral right lower leg and right foot, painful injury. Severity of symptoms: At their worst the symptoms were moderate, earlier today, in the emergency department the symptoms have improved, moderately. States that she fell due to her walker tipping over while she was walking. States that her head grazed against furniture and right lower leg and foot hit floor. Denies any LOC or symptoms prior to falling. She took Tramadol and Gabapentin prior to coming to the ER.. Historical: - Home Meds: 23:46 acetaminophen 325 mg Oral tab 2 tabs every 4-6 hours [Active]; celecoxib 200 mg Oral kd3 cap 1 cap once daily [Active]; Fish Oil 1000mg [place] 3 300mg daily [Active]; Estroven Oral [Active]; Magnesium 500mg daily [Active]; Metamucil Tabs 5 tab twice a day [Active]; Colace 100 mg Oral cap 2 caps once daily [Active]; PreserVision AREDS 2 [id number] vh-jotd-jz-mg Oral cap twice a day [Active]; simvastatin 20 mg Oral tab 1 tab once daily [Active]; Restasis 0.05 % ophthalmic dpet 1 drop 2 times per day [Active]; Singulair 10 mg Oral tab 1 tab once daily [Active]; tramadol 50 mg Oral tab [Active]; Vitamin D3 2,000 unit Oral cap daily [Active]; topiramate 100 mg Oral CSpX 1 cap twice a day [Active]; multivitamin Oral tab daily [Active]; vitamin E 400 unit Oral cap daily [Active]; Calcium- Vitamin D3 1200mg/1000IU daily [Active]; Arnuity Ellipta 200 mcg/actuation inhalation dsdv 1 puff once daily [Active]; - PMHx: 23:46 Asthma; Back pain; constipation; High Cholesterol; hot flashes; macular degeneration; kd3 dry eyes; - Immunization history:: Adult Immunizations up to date. - Social history:: Smoking status: unknown. ROS: 23:49 Constitutional: Negative for fever, chills, and weight loss, Eyes: Negative for injury, mh7 pain, redness, and discharge, ENT: Negative for injury, pain, and discharge, Neck: Negative for injury, pain, and swelling, Cardiovascular: Negative for chest pain, palpitations, and edema, Respiratory: Negative for shortness of breath, cough, wheezing, and pleuritic chest pain, Abdomen/GI: Negative for abdominal pain, nausea, vomiting, diarrhea, and constipation, Back: Negative for injury and pain, : Negative for injury, bleeding, discharge, and swelling, Skin: Negative for injury, rash, and discoloration, Neuro: Negative for headache, weakness, numbness, tingling, and seizure, Psych: Negative for depression, anxiety, suicide ideation, homicidal ideation, and hallucinations, Allergy/Immunology: Negative for hives, rash, and allergies, Endocrine: Negative for neck swelling, polydipsia, polyuria, polyphagia, and marked weight changes, Hematologic/Lymphatic: Negative for swollen nodes, abnormal bleeding, and unusual bruising. Exam: 23:49 Constitutional: This is a well developed, well nourished patient who is awake, alert, mh7 and in no acute distress. Head/Face: Normocephalic, atraumatic. Eyes: Pupils equal round and reactive to light, extra-ocular motions intact. Lids and lashes normal. Conjunctiva and sclera are non-icteric and not injected. Cornea within normal limits. Periorbital areas with no swelling, redness, or edema. ENT: Nares patent. No nasal discharge, no septal abnormalities noted. Tympanic membranes are normal and external auditory canals are clear. Oropharynx with no redness, swelling, or masses, exudates, or evidence of obstruction, uvula midline. Mucous membranes moist. 23:49 Neck: Trachea midline, no thyromegaly or masses palpated, and no cervical lymphadenopathy. Supple, full range of motion without nuchal rigidity, or vertebral point tenderness. No Meningismus. Chest/axilla: Normal chest wall appearance and motion. Nontender with no deformity. No lesions are appreciated. Cardiovascular: Regular rate and rhythm with a normal S1 and S2. No gallops, murmurs, or rubs. Normal PMI, no JVD. No pulse deficits. Respiratory: Lungs have equal breath sounds bilaterally, clear to auscultation and percussion. No rales, rhonchi or wheezes noted. No increased work of breathing, no retractions or nasal flaring. Abdomen/GI: Soft, non-tender, with normal bowel sounds. No distension or tympany. No guarding or rebound. No evidence of tenderness throughout. Back: No spinal tenderness. No costovertebral tenderness. Full range of motion. Skin: Warm, dry with normal turgor. Normal color with no rashes, no lesions, and no evidence of cellulitis. 23:49 ENT: TM's: hemotympanum, is not appreciated, bilaterally. 23:49 Musculoskeletal/extremity: Extremities: noted in the lateral aspect right lower leg and dorsal right foot: pain, tenderness, ROM: no acute changes, Circulation is intact in all extremities. Sensation intact. Compartment Syndrome exam of affected extremity: is normal. no numbness, no tingling, no sensation deficit, no palor, no weak pulses, Joints: All joints appear normal with full range of motion. Tendon exam: specific tendon testing normal through active and passive range of motion 23:49 Neuro: Orientation: is normal, Mentation: is normal, Memory: is normal, Cranial nerves: grossly normal, Cerebellar function: is grossly normal, Motor: is normal, Sensation: no obvious gross deficits, Gait: not tested. seizure activity, is not displayed by the patient, Abnormal movements: there are no abnormal movements. Vital Signs: 23:42 BP 115 / 73; Pulse 105; Resp 18; Temp 98.3; Pulse Ox 98% on R/A; Weight 131.54 kg; kd3 Height 5 ft. 4 in. (162.56 cm); 23:54 BP 138 / 90; Pulse 94; Resp 18; Pulse Ox 98% ; kd3 07/ 01:02 Pulse 98; Resp 16; Pulse Ox 100% ; kd3 01:02 BP 147 / 68; kd3 02:18 BP 135 / 62; Pulse 98; Resp 18; Pulse Ox 100% on R/A; kd3 10/28 23:42 Body Mass Index 49.78 (131.54 kg, 162.56 cm) 3 MDM: 02:04 Differential diagnosis: abrasion, closed head injury, contusion, fracture, sprain, mh7 strain. Data reviewed: vital signs, nurses notes, radiologic studies, CT scan, plain films. Data interpreted: Pulse oximetry: on room air is 100 %. Interpretation: normal. Counseling: I had a detailed discussion with the patient and/or guardian regarding: the historical points, exam findings, and any diagnostic results supporting the discharge/admit diagnosis, the presence of at least one elevated blood pressure reading (>120/80) during this emergency department visit, radiology results, the need for outpatient follow up, a orthopedic surgeon, to return to the emergency department if symptoms worsen or persist or if there are any questions or concerns that arise at home. Response to treatment: the patient's symptoms have markedly improved after treatment. 02:07 Patient medically screened. [facility] 10/28 23:46 Order name: Tib Fib Right XRAY [facility] 10/28 23:46 Order name: Ankle Right 3 View XRAY 7 10/28 23:46 Order name: Foot Right 3 View XRAY 7 10/29 00:02 Order name: CT Head Brain wo Cont 7 10/29 01:53 Order name: Orthopedic shoe; Complete Time: 02:18 mh7 Administered Medications: No medications were administered Disposition Summary: 10/29/21 02:07 Discharge Ordered Location: Home [facility] Problem: new 7 Symptoms: have improved [facility] Condition: Stable 7 Diagnosis - Fall due to bumping against object mh7 - Contusion of right lower leg mh7 - Contusion of right foot 7 Followup: 7 - With: Private Physician - When: 2 - 3 days - Reason: Worsening of condition, Recheck today's complaints, Continuance of care, Re-evaluation by your physician Followup: 7 - With: Luis Felix MD - When: 1 - 2 days - Reason: Worsening of condition, Recheck today's complaints, Continuance of care, Re-evaluation by your physician Discharge Instructions: - Discharge Summary Sheet 7 - Fall Prevention in the Home, Adult, [id number] mh7 - Foot Contusion, [id number] 7 Forms: - Medication Reconciliation Form 7 - Thank You Letter 7 - Antibiotic Education 7 - Prescription Opioid Use [facility] Signatures: Dispatcher [employer] Shravan Vicente MD MD 7 Roxann Goodrich RN RN kd3
[2021-10-29 02:28] VITALS: TEMP 98.3
[2021-10-29 02:32] VITALS: O2SAT 100
[2021-10-29 02:33] VITALS: BP 135/62
--- NOTE | 2021-10-29 17:17 | RAD REPORT ---
EXAM DESCRIPTION: RAD - Tib Fib Right - 10/29/2021 12:33 am CLINICAL HISTORY: 76 years Female trauma COMPARISON: None TECHNIQUE: 2 images of the right tibia and fibula were obtained. FINDINGS: Right total knee prosthesis. No acute fractures seen. Normal bony mineralization. No erosi ve or lytic lesions seen. Soft tissue calcifications in region of knee. IMPRESSION: No acute fracture or dislocation seen. Electronically signed by: Angelita Jurado MD 10/29/2021 12:43 AM CDT Due to temporary technical issues with the PACS/Fluency reporting system, reports are being signed by the in house radiologists without review as a courtesy to insure prompt reporting. The interpreting radiologist is fully responsible for the content of the report.
--- NOTE | 2021-10-29 17:22 | RAD REPORT ---
EXAM DESCRIPTION: RAD - Ankle Right 3 View - 10/29/2021 12:33 am CLINICAL HISTORY: trauma. COMPARISON: None. TECHNIQUE: Three views of the right foot and ankle were obtained: AP, oblique, and lateral radiograp hs. FINDINGS: No acute osseous abnormality is identified. No ankle mortise widening. The talar dome appe ars intact. Tiny chronic Achilles and plantar fascial enthesophytes. Incidentally noted bipartite med ial sesamoid. Osteopenic appearance of the bones. IMPRESSION: No acute osseous abnormality identified in the foot or ankle. Electronically signed by: Maris Young MD 10/29/2021 12:47 AM CDT Due to temporary technical issues with the PACS/Fluency reporting system, reports are being signed by the in house radiologists without review as a courtesy to insure prompt reporting. The interpreting radiologist is fully responsible for the content of the report.
--- NOTE | 2021-10-29 17:24 | RAD REPORT ---
EXAM DESCRIPTION: RAD - Foot Right 3 View - 10/29/2021 12:33 am CLINICAL HISTORY: Trauma. COMPARISON: None. TECHNIQUE: Three views of the right foot and ankle were obtained: AP, oblique, and lateral radiograp hs. FINDINGS: No acute osseous abnormality is identified. No ankle mortise widening. The talar dome appe ars intact. Tiny chronic Achilles and plantar fascial enthesophytes. Incidentally noted bipartite med ial sesamoid. Osteopenic appearance of the bones. IMPRESSION: No acute osseous abnormality identified in the foot or ankle. Electronically signed by: Maris Young MD 10/29/2021 12:47 AM CDT Due to temporary technical issues with the PACS/Fluency reporting system, reports are being signed by the in house radiologists without review as a courtesy to insure prompt reporting. The interpreting radiologist is fully responsible for the content of the report.
--- NOTE | 2021-10-29 17:25 | RAD REPORT ---
EXAM DESCRIPTION: CT - Head Brain Wo Cont - 10/29/2021 7:38 am CLINICAL HISTORY: Head trauma, minor TECHNIQUE: Axial computed tomography images of the head/brain without intravenous contrast. Sagitt al and coronal reformatted images were created and reviewed. This CT exam was performed using one o r more of the following dose reduction techniques: automated exposure control, adjustment of the mA and/or kV according to patient size, and/or use of iterative reconstruction technique. COMPARISON: No relevant prior studies available. FINDINGS: Brain: Bilateral periventricular and subcortical white matter hypodensity most likely re lated to chronic microvascular angiopathy. No hemorrhage. Ventricles: Unremarkable. No ventriculomegaly. Bones/joints: Unremarkable. No acute fracture. Soft tissues: Unremarkable. Vasculature: There is atherosclerotic disease of the internal carotid arteries bilaterally. Sinuses: Unremarkable as visualized. No acute sinusitis. Mastoid air cells: Unremarkable as visualized. No mastoid effusion. IMPRESSION: 1. No acute intracranial or extra-axial abnormality. 2. Other findings as above. Electronically signed by: Sherrill Fischer MD 10/29/2021 1:37 AM CDT Due to temporary technical issues with the PACS/Fluency reporting system, reports are being signed by the in house radiologists without review as a courtesy to insure prompt reporting. The interpreting radiologist is fully responsible for the content of the report.
== END 2021-10-29 02:22 | disposition home or self-care (01) ==
LOC: ER 23:16
DX: S80.11XA Contusion of right lower leg, initial encounter (principal); S90.31XA Contusion of right foot, initial encounter; W18.00XA Striking against unspecified object with subsequent fall, initial encounter; E78.00 Pure hypercholesterolemia, unspecified
CPT/HCPCS: 70450; 99283

== ENCOUNTER 2021-12-06 09:12 | Observation (INO) | payer OTHER, MEDICARE ==
[2021-12-06 10:00] LABS: Absolute Lymphocytes (CBC) 0.8 K/uL (0.7-4.9); Hematocrit 40.8 % (36.0-45.0); Lymphocytes % 17.4 % (15.3-44.8); MPV 7.2 fL (7.6-11.3); RBC Red Blood Cell Count 4.39 M/uL (3.86-4.86)
[2021-12-06 10:17] LABS: Potassium 3.7 mmol/L (3.5-5.1); Troponin High Sensitivity 11.7 pg/mL (<58.9)
[2021-12-06 10:19] LABS: SARS-CoV-2 Antigen Rapid Res Negative (Negative)
--- NOTE | 2021-12-06 10:43 | RAD REPORT ---
EXAM DESCRIPTION: RAD - Chest Single View - 12/06/2021 10:02 am CLINICAL HISTORY: hypotension, sob COMPARISON: Abdomen 1 View (KUB) dated 10/03/2018; Chest Pa And Lat (2 Views) dated 06/04/2018; Abdome n 1 View (KUB) dated 10/02/2017; Abdomen 1 View (KUB) dated 09/23/2016 FINDINGS: Lines: None. Lungs: No evidence of edema or pneumonia. Pleural: No significant pleural effusions or pneumothorax. Cardiac: The heart size is within normal limits. Bones: No acute fractures. Other: IMPRESSION: No acute cardiopulmonary disease.
--- NOTE | 2021-12-06 11:01 | RAD REPORT ---
EXAM DESCRIPTION: CT - Chest For Pe Angio - 12/06/2021 10:43 am CLINICAL HISTORY: Pulmonary embolism (PE) suspected, positive D-dimer COMPARISON: No comparisons TECHNIQUE: Dynamically enhanced axial 3 mm thick images of the chest were obtained during administra tion of <100> mL Isovue 370 IV contrast. Coronal and oblique reconstruction images were generated and reviewed. Exam utilizes a protocol for optimal evaluation of pulmonary arterial tree. Maximum intensity projections 3D imaging was utilized All CT scans are performed using dose optimization technique as appropriate and may include automated exposure control or mA/KV adjustment according to patient size. FINDINGS: Chest Wall: No suspicious thyroid nodules or pathologic lymphadenopathy. Lungs: No acute abnormality. Pleura: No significant effusions or pneumothorax. Mediastinum/sherrie: No pathologic lymphadenopathy. Pulmonary arteries/Aorta: Tiny nonocclusive thrombus in the right main pulmonary artery. This is more of a linear defect. The subsegmental pulmonary arteries are not well evaluated due to suboptimal con trast opacification. No aortic aneurysm. Heart: No significant pericardial effusion. Normal heart size. Upper abdomen: No acute abnormality. Bones: No acute abnormality. IMPRESSION: Positive for pulmonary embolism with small clot burden. Linear nonocclusive filling defe ct in the right main pulmonary artery may be acute but could represent a subacute or chronic pulmonar y embolus. Discussed with Dr. Bourgeois by Dr. Prieot at 1052 on 12/06/21.
[2021-12-06] MEDS ORDERED: ENOXAPARIN 100 MG/ML SYR SQ ONE (11:27)
[2021-12-06] MEDS ORDERED: ENOXAPARIN 30 MG/0.3 ML SQ ONE (11:27)
--- NOTE | 2021-12-06 11:29 | ER ---
Nurse's Notes [facility] Name: Rodolfo Arredondo Age: 76 yrs Sex: Female : 1945 Arrival Date: 12/06/2021 Time: 09:18 Bed 24 Private MD: Diagnosis: Pulmonary embolism without acute cor pulmonale;Muscle weakness (generalized);Dehydration Presentation: 12/06 09:09 Chief complaint: EMS states: call came in for a patient stuck on the toilet, further jg9 details included progressive generalized weakness x 2 weeks and sob on exertion. Coronavirus screen: Vaccine status: Patient reports receiving the 2nd dose of the covid vaccine. Ebola Screen: Patient negative for fever greater than or equal to 101.5 degrees Fahrenheit, and additional compatible Ebola Virus Disease symptoms Patient denies exposure to infectious person. Patient denies travel to an Ebola-affected area in the 21 days before illness onset. No acute neurological deficit is noted. Pre-hospital glucose is not applicable to this patient. Initial Sepsis Screen: Does the patient meet any 2 criteria? Systolic BP < 90 mmHg. Yes Does the patient have a suspected source of infection? No. Patient's initial sepsis screen is negative. Risk Assessment: Do you want to hurt yourself or someone else? Patient reports no desire to harm self or others. Onset of symptoms is unknown. 09:09 Method Of Arrival: EMS: [facility] jg9 09:09 Acuity: CY 3 jg9 Triage Assessment: 09:10 The onset of the patients symptoms was more than six hours ago. General: Appears in no jg9 apparent distress. Behavior is calm, cooperative. Pain: Complains of pain in back. Neuro: Reports weakness in right arm, left arm, right leg and left leg. 09:23 Cardiovascular: No deficits noted. Respiratory: No deficits noted. GI: No deficits jg9 noted. : No deficits noted. Derm: No deficits noted. Musculoskeletal: Reports weakness in left leg and right leg and left arm and right arm. Stroke Activation: Physician: Stroke Attending; Name: ; Notified At: ; Arrived At: Physician: Chief Stroke Resident; Name: ; Notified At: ; Arrived At: Physician: Stroke Resident; Name: ; Notified At: ; Arrived At: Physician: ED Attending; Name: ; Notified At: ; Arrived At: Physician: ED Resident; Name: ; Notified At: ; Arrived At: 09:09 n/a jg9 Historical: - Allergies: :24 No Known Allergies; jg9 - PMHx: :22 Asthma; Back pain; constipation; dry eyes; High Cholesterol; hot flashes; macular jg9 degeneration; - Immunization history:: Adult Immunizations up to date. - Social history:: Smoking status: Patient denies any tobacco usage or history of. - Family history:: not pertinent. - Hospitalizations: : No recent hospitalization is reported. Screenin:24 Abuse screen: Denies threats or abuse. Denies injuries from another. Nutritional jg9 screening: No deficits noted. Tuberculosis screening: No symptoms or risk factors identified. Fall Risk Fall in past 12 months (25 points). Assessment: 10:00 Reassessment: No changes from previously documented assessment. Patient and/or family jg9 updated on plan of care and expected duration. Pain level reassessed. Patient is alert, oriented x 3, equal unlabored respirations, skin warm/dry/pink. 11:30 Reassessment: patient took at home pain medication, tramadol \T\ gabapentin-provider jg9 aware. 13:00 Reassessment: No changes from previously documented assessment. Patient and/or family jg9 updated on plan of care and expected duration. Pain level reassessed. Patient is alert, oriented x 3, equal unlabored respirations, skin warm/dry/pink. 14:00 Reassessment: Patient and/or family updated on plan of care and expected duration. Pain jg9 level reassessed. Patient is alert, oriented x 3, equal unlabored respirations, skin warm/dry/pink. 15:00 Reassessment: Patient and/or family updated on plan of care and expected duration. Pain jg9 level reassessed. Patient is alert, oriented x 3, equal unlabored respirations, skin warm/dry/pink. 16:00 Reassessment: Patient appears in no apparent distress at this time. No changes from jg9 previously documented assessment. Patient and/or family updated on plan of care and expected duration. Pain level reassessed. Patient is alert, oriented x 3, equal unlabored respirations, skin warm/dry/pink. 17:00 Reassessment: Patient and/or family updated on plan of care and expected duration. Pain jg9 level reassessed. Patient is alert, oriented x 3, equal unlabored respirations, skin warm/dry/pink. 18:00 Reassessment: Patient and/or family updated on plan of care and expected duration. Pain jg9 level reassessed. Patient is alert, oriented x 3, equal unlabored respirations, skin warm/dry/pink. Vital Signs: 09:09 BP 91 / 73 LA (/reg); Pulse 96; Resp 17 S; Temp 96.5(A); Pulse Ox 93% on R/A; Weight jg9 117.93 kg (R); Height 5 ft. 5 in. (165.10 cm) (R); Pain 0/10; 09:15 BP 79 / 61 LA (/reg); Pulse 94; Resp 17; Pulse Ox 98% ; jg9 09:43 BP 131 / 79 LA (/lg); Pulse 90; Resp 13 S; Pulse Ox 98% on R/A; jg9 09:45 BP 152 / 77 LA (/lg); Pulse 87; Resp 13 S; Pulse Ox 99% on R/A; jg9 10:00 BP 161 / 71 LA (/lg); Pulse 85; Resp 17 S; Pulse Ox 99% ; jg9 11:45 BP 127 / 94; Pulse 92; Resp 25 S; Pulse Ox 97% on R/A; jg9 13:00 BP 160 / 74; Pulse 87; Resp 18 S; Pulse Ox 100% on R/A; jg9 14:15 BP 168 / 85; Pulse 87; Resp 13 S; Pulse Ox 100% on R/A; jg9 17:00 BP 137 / 73; Pulse 90; Resp 12 S; Pulse Ox 97% on R/A; jg9 18:00 BP 165 / 73; Pulse 83; Resp 16 S; Pulse Ox 98% ; jg9 09:09 Body Mass Index 43.26 (117.93 kg, 165.10 cm) j9 ED Course: 09:18 Patient arrived in ED. rn 09:18 Darren Bourgeois MD is Attending Physician. rn 09:18 Lisa Velarde, JOANA is Primary Nurse. jg9 09:22 Triage completed. jg9 09:24 Arm band placed on left wrist. jg9 09:24 Patient has correct armband on for positive identification. Placed in gown. Bed in low jg9 position. Call light in reach. Side rails up X2. 09:25 Maintain EMS IV. Dressing intact. Good blood return noted. Site clean \T\ dry. Gauge \T\ jg 9 site: 20 r ac. 10:03 XRAY Chest (1 view) In Process Unspecified. EDMS 10:19 No apparent distress. Resting quietly. jg9 10:45 Chest For Pe Angio In Process Unspecified. EDMS 11:29 Venancio Guallpa MD is Hospitalizing Provider. rn 14:34 No apparent distress. Resting quietly. Awaiting bed assignment. jg9 18:22 No provider procedures requiring assistance completed. jg9 18:22 Patient admitted, IV remains in place. jg9 19:23 Primary Nurse role handed off by Lisa Velarde, JOANA mw2 12/07 17:40 Luis Alberto Daily RN is Primary Nurse. jl7 Administered Medications: 12/06 09:26 Drug: NS 0.9% 500 ml Route: IV; Rate: bolus; Site: right antecubital; jg9 11:13 Follow up: IV Status: Completed infusion; IV Intake: 500ml jg9 11:20 Drug: Lovenox (enoxaparin) 1 mg/kg Route: Sub-Q; Site: left lower abdomen; jg9 13:06 Follow up: Response: No adverse reaction jg9 Medication: 18:22 VIS not applicable for this client. jg9 Intake: 11:13 IV: 500ml; Total: 500ml. jg9 Outcome: 11:29 Decision to Hospitalize by Provider. rn 18:22 Admitted to ER Hold. Please see [facility] for further documentation. jg9 18:22 Condition: stable 12/07 17:40 Patient left the ED. jl7 Signatures: Dispatcher [employer] EDMS Darren Bourgeois MD MD rn Leal, Jahala, RN RN jl7 Shabana Clements mw2 Lisa Velarde RN RN jg9 Corrections: (The following items were deleted from the chart) 12/06 10:13 09:09 BP 91 / 73; Pulse 96bpm; Resp 17bpm; Spontaneous; Pulse Ox 93% RA; Temp 96.5F jg9 Axillary; 117.93 kg Reported; Height 5 ft. 5 in. Reported; BMI: 43.2; Pain 0/10; jg9 : 09:45 BP 152 / 77 R Arm; Pulse 87bpm; Resp 13bpm; Spontaneous; Pulse Ox 99% RA; jg9 jg9 09:43 BP 131 / 79; Pulse 90bpm; Resp 13bpm; Spontaneous; Pulse Ox 98% RA; jg9 jg9
--- NOTE | 2021-12-06 11:29 | EDPHYS ---
Physician Documentation [facility] Name: Rodolfo Arredondo Age: 76 yrs Sex: Female : 1945 Arrival Date: 12/06/2021 Time: 09:18 Bed 24 Private MD: ED Physician Darren Bourgeois HPI: 12/06 09:35 This 76 yrs old Female presents to ER via EMS with complaints of Weakness. rn 09:35 The patient presents to the emergency department with weakness of the entire body, rn generalized weakness. Onset: The symptoms/episode began/occurred 2 week(s) ago. Context: occurred at home, occurred while the patient was at rest. Associated signs and symptoms: Pertinent positives: weakness, Pertinent negatives: fever, neck stiffness, paresthesias, seizure, syncope. Severity of symptoms: At their worst the symptoms were moderate in the emergency department the symptoms are unchanged. The patient has not experienced similar symptoms in the past. The patient has not recently seen a physician. Pt reports 1-2 weeks of generalized weakness and fatigue. Today, spent 2 hours on toilet unable to get up. Usually able to get herself off toilet using her arms and her toilet stand, and not able to today. Denies fever/vomiting/chest pain/abd pain. Does report dyspnea on exertion for several months. No blood in stool. . Historical: - Allergies: 09:24 No Known Allergies; jg9 - PMHx: 09:22 Asthma; Back pain; constipation; dry eyes; High Cholesterol; hot flashes; macular jg9 degeneration; - Immunization history:: Adult Immunizations up to date. - Social history:: Smoking status: Patient denies any tobacco usage or history of. - Family history:: not pertinent. - Hospitalizations: : No recent hospitalization is reported. ROS: 09:35 Constitutional: Negative for fever, chills, and weight loss, Eyes: Negative for injury, rn pain, redness, and discharge, Neck: Negative for injury, pain, and swelling, Cardiovascular: Negative for chest pain, palpitations, and edema, Respiratory: Negative for cough, wheezing, and pleuritic chest pain, Abdomen/GI: Negative for abdominal pain, nausea, vomiting, and constipation, Back: Negative for injury and pain, MS/Extremity: Negative for injury and deformity, Skin: Negative for injury, rash, and discoloration, Neuro: Negative for headache, numbness, tingling, and seizure. Exam: 09:35 Constitutional: Overweight female, no acute distress. Head/Face: Normocephalic, rn atraumatic. Eyes: Periorbital areas with no swelling, redness, or edema. ENT: very dry MM Cardiovascular: Regular rate and rhythm. No pulse deficits. Respiratory: No increased work of breathing, no retractions or nasal flaring. Abdomen/GI: Soft, non-tender Skin: Warm, dry MS/ Extremity: Pulses equal, no cyanosis. Neurovascular intact. Full, normal range of motion. Equal circumference. Neuro: Awake and alert, GCS 15, oriented to person, place, time, and situation. Motor strength 4/5 in all extremities. Sensory grossly intact. 10:39 ECG was reviewed by the Attending Physician. rn Vital Signs: 09:09 BP 91 / 73 LA (/reg); Pulse 96; Resp 17 S; Temp 96.5(A); Pulse Ox 93% on R/A; Weight 9 117.93 kg (R); Height 5 ft. 5 in. (165.10 cm) (R); Pain 0/10; 09:15 BP 79 / 61 LA (/reg); Pulse 94; Resp 17; Pulse Ox 98% ; jg9 09:43 BP 131 / 79 LA (/lg); Pulse 90; Resp 13 S; Pulse Ox 98% on R/A; jg9 09:45 BP 152 / 77 LA (/lg); Pulse 87; Resp 13 S; Pulse Ox 99% on R/A; jg9 10:00 BP 161 / 71 LA (/lg); Pulse 85; Resp 17 S; Pulse Ox 99% ; jg9 11:45 BP 127 / 94; Pulse 92; Resp 25 S; Pulse Ox 97% on R/A; jg9 13:00 BP 160 / 74; Pulse 87; Resp 18 S; Pulse Ox 100% on R/A; jg9 14:15 BP 168 / 85; Pulse 87; Resp 13 S; Pulse Ox 100% on R/A; jg9 17:00 BP 137 / 73; Pulse 90; Resp 12 S; Pulse Ox 97% on R/A; jg9 18:00 BP 165 / 73; Pulse 83; Resp 16 S; Pulse Ox 98% ; jg9 09:09 Body Mass Index 43.26 (117.93 kg, 165.10 cm) jg9 MDM: 09:18 Patient medically screened. rn 11:28 Data reviewed: vital signs, nurses notes, lab test result(s), EKG, radiologic studies, rn CT scan, plain films, and as a result, I will admit patient. Counseling: I had a detailed discussion with the patient and/or guardian regarding: the historical points, exam findings, and any diagnostic results supporting the discharge/admit diagnosis, lab results, radiology results, the need for further work-up and treatment in the hospital. Response to treatment: There is no appreciated change of the patient's symptoms at this time, and as a result, I will admit patient. Admission orders: after a detailed discussion of the patient's condition and case, the admit orders are written by me. 12/06 09:19 Order name: Basic Metabolic Panel; Complete Time: 10:18 rn 12/06 09:19 Order name: CBC with Diff; Complete Time: 10:18 rn 12/06 09:19 Order name: D-Dimer; Complete Time: 10:18 rn 12/06 09:19 Order name: NT PRO-BNP; Complete Time: 10:18 rn 12/06 09:19 Order name: Troponin HS; Complete Time: 10:18 rn 12/06 09:19 Order name: SARS RAPID; Complete Time: 10:53 rn 12/06 09:19 Order name: XRAY Chest (1 view); Complete Time: 10:53 rn 12/06 09:19 Order name: Urine Microscopic Only; Complete Time: 15:30 rn 12/06 10:19 Order name: CT Chest For PE Angio rn 12/06 12:17 Order name: Urine Dipstick-Ancillary; Complete Time: 15:30 EDMS 12/06 17:29 Order name: CBC with Automated Diff EDMS 12/06 17:29 Order name: CBC with Automated Diff EDMS 12/06 17:29 Order name: Comprehensive Metabolic Panel EDNH 12/06 17:29 Order name: Comprehensive Metabolic Panel EDNH 12/06 09:19 Order name: EKG; Complete Time: 09:20 rn 12/06 09:19 Order name: Cardiac monitoring; Complete Time: 09:25 rn 12/06 09:19 Order name: EKG - Nurse/Tech; Complete Time: 09:41 rn 12/06 09:19 Order name: IV Saline Lock; Complete Time: 09:25 rn 12/06 09:19 Order name: Labs collected and sent; Complete Time: 09:52 rn 12/06 09:19 Order name: O2 Sat Monitoring; Complete Time: 09:25 rn 12/06 09:19 Order name: Urine Dipstick-Ancillary (obtain specimen); Complete Time: 13:04 rn 12/06 10:23 Order name: Chest For Pe Angio; Complete Time: 11:07 EDMS 12/06 17:29 Order name: Heart Healthy EDMS 12/06 17:29 Order name: Echo with Doppler EDMS 12/06 17:29 Order name: Echo with Doppler EDMS 12/06 17:31 Order name: Extrem Venous W Compress Shaheed EDMS EC:39 Rate is 90 beats/min. Rhythm is regular. QRS [place] is Normal. MO interval is normal. QRS rn interval is normal. QT interval is normal. No Q waves. T waves are Normal. No ST changes noted. Clinical impression: Normal ECG. Interpreted by me. Reviewed by me. Administered Medications: 09:26 Drug: NS 0.9% 500 ml Route: IV; Rate: bolus; Site: right antecubital; jg9 11:13 Follow up: IV Status: Completed infusion; IV Intake: 500ml jg9 11:20 Drug: Lovenox (enoxaparin) 1 mg/kg Route: Sub-Q; Site: left lower abdomen; jg9 13:06 Follow up: Response: No adverse reaction jg9 Disposition Summary: 12/06/21 11:29 Hospitalization Ordered Hospitalization Status: Inpatient Admission rn Provider: Venancio Guallpa rn Condition: Stable rn Problem: new rn Symptoms: are unchanged rn Bed/Room Type: Standard rn Location: [facility] ER HOLD(12/06/21 18:22) Room Assignment: ERHOLD-(12/06/21 18:22) Diagnosis - Pulmonary embolism without acute cor pulmonale rn - Muscle weakness (generalized) rn - Dehydration rn Forms: - Medication Reconciliation Form rn - SBAR form rn Signatures: [facility]patcher [facility] Darren Bourgeois MD MD rn Smirch, Shelby, RN RN ss Gilmore, Jennifer, RN RN jg9 Corrections: (The following items were deleted from the chart) 13:06 09:19 Oxygen Per Protocol ordered. joel jg9 : 11:29 Telemetry/MedSurg (Inpatient) joel acosta 11: joel acosta
[2021-12-06 12:16] LABS: Urine Blood Trace-intact (Negative); Urine Glucose Negative (Negative); Urine Protein Negative (Negative); Urine Specific Gravity 1.015 (1.005-1.030)
[2021-12-06 12:36] LABS: Urine Bacteria <20 /HPF (<20); Urine RBC <5 /HPF (None Seen)
[2021-12-06] MEDS ORDERED: ONDANSETRON 4 MG/2 ML VIAL IV PRN (17:26)
[2021-12-06] MEDS ORDERED: ACETAMINOPHEN 500 MG TAB PO PRN (17:26)
[2021-12-06 17:59] VITALS: BMI 43.2
[2021-12-06] MEDS ORDERED: NA CHLORIDE 0.9% 1,000 ML IV SCH (18:00)
--- NOTE | 2021-12-06 19:45 | RAD REPORT ---
EXAM DESCRIPTION: USExtrem Venous W Compress Bil12/06/2021 6:21 pm CLINICAL HISTORY: Leg pain COMPARISON: 2016 FINDINGS: The left common femoral, superficial femoral, popliteal and posterior tibial veins are co mpressible and demonstrate augmentation. Doppler demonstrates good flow. Echogenic material consistent with thrombus is present within the right popliteal and right posterior veins. Veins are partially compressible. Grayscale, color and spectral analysis performed on all vessels IMPRESSION: Acute thrombus right popliteal and right posterior tibial veins.
[2021-12-06] MEDS ORDERED: APIXABAN 5 MG TABLET ONE ×2 (21:24→21:36)
[2021-12-06] MEDS: APIXABAN 5 MG TABLET PO SCH (21:26)
[2021-12-06] MEDS ORDERED: NA CHLORIDE 0.9% 1,000 ML ONE (23:41)
--- NOTE | 2021-12-07 | P.HP ---
Certification for Inpatient Patient admitted to: Observation With expected LOS: <2 Midnights Patient will require the following post-hospital care: None Practitioner: I am a practitioner with admitting privileges, knowledge of patient current condition, hospital course, and medical plan of care. Services: Services provided to patient in accordance with Admission requirements found in Title 42 Section 412.3 of the Code of Federal Regulations Patient History Date of Service: 12/06/21 Reason for admission: PULMONARY EMBOLISM History of Present Illness: PATIENT IS A 76-YEAR-OLD FEMALE WHO IS MORBIDLY OBESE WITH A HISTORY OF LYMPHEDEMA WHO CAME TO THE HOSPITAL WITH DYSPNEA AND SHORTNESS OF BREATH. PATIENT CAME TO THE HOSPITAL FOR EVALUATION. PATIENT WAS WORKED UP IN THE EMERGENCY ROOM AND CT PE PROTOCOL REVEALED PULMONARY EMBOLISM. PATIENT WAS STARTED ON ANTICOAGULATION. PATIENT WILL BE GIVEN ORAL ELIQUIS. PATIENT WILL BE ADMITTED FOR OBSERVATION. Allergies No Known Allergies Allergy (Verified 12/06/21 15:02) Home Medications: Pantoprazole [Protonix Tab] 40 mg PO DAILY 04/29/21 Gabapentin 2 cap PO BID 12/06/21 Tramadol HCl [Ultram] 1 tab PO Q4HR 12/06/21 - Past Medical/Surgical History Has patient received pneumonia vaccine in the past: Yes Diabetic: No -: Arthritis -: Morbid Obesity -: Hyperlipidemia -: GERD -: Asthma -: Bilateral knee sx -: Right rotator cuff sx -: Tubaligation - Family History Father Family History: Reviewed- Non-Contributory - Social History Smoking Status: Never smoker Alcohol use: No CD- Drugs: No Caffeine use: No Review of Systems 10-point ROS is otherwise unremarkable Physical Examination - Vital Signs Temperature: 98 F Blood Pressure: 140/80 Pulse: 80 Respirations: 18 Pulse Ox (%): 96 - Physical Exam General: Alert, In no apparent distress, Oriented x3 HEENT: Atraumatic, PERRLA, Mucous membr. moist/pink, EOMI, Sclerae nonicteric Neck: Supple, 2+ carotid pulse no bruit, No LAD, Without JVD or thyroid abnormality Respiratory: Clear to auscultation bilaterally, Normal air movement Cardiovascular: Regular rate/rhythm, Normal S1 S2, No murmurs Gastrointestinal: Normal bowel sounds, Soft and benign, Non-distended, No tenderness Musculoskeletal: No tenderness, Swelling Integumentary: No rashes, Tenderness/swelling Neurological: Normal gait, Normal speech, Normal strength at 5/5 x4 extr, Normal tone, Normal affect Lymphatics: No axilla or inguinal lymphadenopathy - Studies Laboratory Data (last 24 hrs) 12/06/21 09:45: WBC 4.40, Hgb 13.5, Hct 40.8, Plt Count 271 12/06/21 09:45: Sodium 142, Potassium 3.7, BUN 13, Creatinine 0.89, Glucose 109 H Assessment & Plan - Problems (Diagnosis) (1) Pulmonary embolism Current Visit: Yes Status: Acute (2) DVT (deep venous thrombosis) Current Visit: Yes Status: Acute (3) Lymphedema Current Visit: No Status: Acute (4) Morbid obesity with BMI of 45.0-49.9, adult Current Visit: No Status: Acute - Plan -ANTI COAGULATION -DOPPLER OF LOWER EXTREMITY WITH RIGHT POPLITEAL AND POSTERIOR TIBIAL DVT -PHYSICAL THERAPY EVALUATION -ECHOCARDIOGRAM -MONITOR OXYGENATION CLOSELY; O2 PER PROTOCOL -GI PROPHYLAXIS Discharge Plan: Home Plan to discharge in: 24 Hours - Advance Directives Does patient have a Living Will: No Does patient have a Durable POA for Healthcare: No - Code Status/Comfort Care Code Status Assessed: Yes Code Status: Full Code Critical Care: No Time Spent Managing PTS Care (In Minutes): 45
[2021-12-07] MEDS: MORPHINE 2 MG/ML SYR IV PRN ×3 (00:59→17:03)
[2021-12-07] MEDS ORDERED: MORPHINE 2 MG/ML SYR ONE ×4 (01:06→17:06)
[2021-12-07 02:57] LABS: Absolute Lymphocytes (CBC) 1.2 K/uL (0.7-4.9); Hematocrit 38.4 % (36.0-45.0); Lymphocytes % 27.8 % (15.3-44.8); MCV 92.5 fL (80-100); MPV 7.8 fL (7.6-11.3); RBC Red Blood Cell Count 4.15 M/uL (3.86-4.86)
[2021-12-07 03:03] LABS: Bilirubin Total 0.8 mg/dL (0.2-1.0); Potassium 3.7 mmol/L (3.5-5.1); Protein, Total 5.2 g/dL (6.4-8.2)
[2021-12-07 03:04] LABS: Albumin 2.6 g/dL (3.4-5.0)
[2021-12-07] MEDS: APIXABAN 5 MG TABLET PO SCH (08:17)
[2021-12-07] MEDS ORDERED: APIXABAN 5 MG TABLET ONE (08:19)
[2021-12-07] MEDS ORDERED: MORPHINE 2 MG/ML SYR IV ONE (10:48)
[2021-12-07] MEDS ORDERED: dexAMETHasone 4 MG/ML VIAL IV ONE (10:48)
[2021-12-07] MEDS ORDERED: dexAMETHasone 4 MG/ML VIAL ONE (11:19)
[2021-12-07] MEDS ORDERED: NA CHLORIDE 0.9% 1,000 ML ONE (12:41)
--- NOTE | 2021-12-07 13:52 | EKG ---
Test Date: 2021-12-06 Test Time: 09:34:59 Actuary Clerk: KENN MEASUREMENT RESULTS: Intervals: Rate: 90 WA: 146 QRSD: 80 QT: 360 QTc: 440 [place]: P: 50 WA: 146 QRS: 16 T: 42 INTERPRETIVE STATEMENTS: Normal sinus rhythm Normal ECG Compared to ECG 03/05/2013 17:27:30 No significant changes Electronically Signed On 12-07-21 13:50:05 CDT by Curly Castro
--- NOTE | 2021-12-07 14:43 | ECHO ---
HEIGHT: 5 ft 5 in WEIGHT: 259 lb 15.858 oz DATE OF STUDY: 12/07/[address]: Venancio Guallpa MD 2-DIMENSIONAL: YES M.MODE: YES DOPPLER: YES COLOR FLOW: YES TDS: YES PORTABLE: YES DEFINITY: BUBBLE STUDY: DIAGNOSIS: PULMONARY EMBOLISM CARDIAC HISTORY: CATHERIZATION: NO SURGERY: NO PROSTHETIC VALVE: NO PACEMAKER: NO MEASUREMENTS (cm) DIASTOLIC (NORMALS) SYSTOLIC (NORMALS) IVSd 1.2 (0.6-1.2) LA Diam 2.6 (1.9-4.0) LVEF 69% LVIDd 3.2 (3.5-5.7) LVIDs 2.0 (2.0-3.5) %FS 37% LVPWd 1.2 (0.6-1.2) Ao Diam .7 (2.0-3.7) 2 DIMENSIONAL ASSESSMENT: RIGHT ATRIUM: NORMAL LEFT ATRIUM: NORMAL RIGHT VENTRICLE: NORMAL LEFT VENTRICLE: NORMAL TRICUSPID VALVE: NORMAL MITRAL VALVE: NORMAL PULMONIC VALVE: NORMAL AORTIC VALVE: NORMAL PERICARDIAL EFFUSION: NONE AORTIC ROOT: NORMAL LEFT VENTRICULAR WALL MOTION: NORMAL (HYPERDYNAMIC LEFT VENTRICLE) DOPPLER/COLOR FLOW: NORMAL COMMENTS: NORMAL LEFT VENTRICULAR EJECTION FRACTION GREATER THAN 60% WITH NORMAL WALL MOTION. NORMAL RIGHT VENTRICLE SIZE AND FUNCTION. TECHNOLOGIST: ALBERTINA PERRIN
[2021-12-07 17:03] VITALS: TEMP 97
[2021-12-07 19:29] VITALS: BP 165/73; O2SAT 98
--- NOTE | 2021-12-08 09:20 | P.DS ---
Discharge Date: 12/07/21 Disposition: ROUTINE DISCHARGE Discharge Condition: GOOD Reason for Admission: PULMONARY EMBOLISM - Problems (1) Pulmonary embolism Status: Acute (2) DVT (deep venous thrombosis) Status: Acute (3) Lymphedema Status: Acute (4) Morbid obesity with BMI of 45.0-49.9, adult Status: Acute Brief History of Present Illness: PATIENT IS A 76-YEAR-OLD FEMALE WHO IS MORBIDLY OBESE WITH A HISTORY OF LYMPHEDEMA WHO CAME TO THE HOSPITAL WITH DYSPNEA AND SHORTNESS OF BREATH. PATIENT CAME TO THE HOSPITAL FOR EVALUATION. PATIENT WAS WORKED UP IN THE EMERGENCY ROOM AND CT PE PROTOCOL REVEALED PULMONARY EMBOLISM. PATIENT WAS STARTED ON ANTICOAGULATION. PATIENT WILL BE GIVEN ORAL ELIQUIS. PATIENT WILL BE ADMITTED FOR OBSERVATION. Vital Signs/Physical Exam: Temp Pulse Resp BP Pulse Ox 97 F 83 16 165/73 H 96 12/07/21 16:00 12/07/21 19:28 12/07/21 19:28 12/07/21 19:28 12/07/21 16:00 Laboratory Data at Discharge: WBC 4.10 K/uL (4.3-10.9) L 12/07/21 01:58 Hgb 12.7 g/dL (12.0-15.0) 12/07/21 01:58 Hct 38.4 % (36.0-45.0) 12/07/21 01:58 Plt Count 245 K/uL (152-406) 12/07/21 01:58 Sodium 140 mmol/L (136-145) 12/07/21 01:58 Potassium 3.7 mmol/L (3.5-5.1) 12/07/21 01:58 BUN 10 mg/dL (7-18) 12/07/21 01:58 Creatinine 0.65 mg/dL (0.55-1.3) 12/07/21 01:58 Glucose 101 mg/dL (74-106) 12/07/21 01:58 Total Bilirubin 0.8 mg/dL (0.2-1.0) 12/07/21 01:58 AST 4 U/L (15-37) L 12/07/21 01:58 ALT 22 U/L (12-78) 12/07/21 01:58 Alkaline Phosphatase 107 U/L (45-117) 12/07/21 01:58 Home Medications: Pantoprazole [Protonix Tab*] 40 mg PO DAILY 04/29/21 Gabapentin 3 cap PO BID 12/06/21 Tramadol HCl [Ultram] 1 tab PO Q4HR 12/06/21 Apixaban [Eliquis] 10 mg PO BID #70 tablet 12/07/21 Hydrocodone 5/APAP 325 [[place] 5/325] 1 tab PO Q6H PRN #30 tab 12/07/21 dexAMETHasone [Dexamethasone] 2 mg PO BID #8 mg 12/07/21 New Medications: dexAMETHasone [Dexamethasone] 2 mg PO BID #8 mg Apixaban [Eliquis] 10 mg PO BID #70 tablet Hydrocodone 5/APAP 325 [[place] 5/325] 1 tab PO Q6H PRN #30 tab PRN Reason: Pain Physician Discharge Instructions: OK TO DC IV AND DC HOME FOLLOW-UP WITH PRIMARY CARE PROVIDER IN 1-2 WEEKS RETURN TO THE ER IF SYMPTOMS WORSENS CALL DR. ELLIOTT AT [phone] IF ANY QUESTIONS REGARDING HOSPITAL STAY. PLEASE CALL THE FLOOR AT [phone] IF ANY MEDICATION OR NURSING QUESTIONS. Diet: Regular Activity: Fall precautions Followup: Madelaine Meadows NP [Primary Care Provider] -
== END 2021-12-07 17:42 | disposition home or self-care (01) ==
LOC: ER 09:12 → ERHOLD 17:26
PROVIDERS: ADMIT Hospitalist; ATTEND Hospitalist
DX: I26.99 Other pulmonary embolism without acute cor pulmonale (principal); I82.431 Acute embolism and thrombosis of right popliteal vein; I82.441 Acute embolism and thrombosis of right tibial vein; I89.0 Lymphedema, not elsewhere classified; E66.01 Morbid (severe) obesity due to excess calories; Z68.42 Body mass index [BMI] 45.0-49.9, adult; E86.0 Dehydration; M62.81 Muscle weakness (generalized); E78.5 Hyperlipidemia, unspecified; J45.909 Unspecified asthma, uncomplicated; K21.9 Gastro-esophageal reflux disease without esophagitis; E78.00 Pure hypercholesterolemia, unspecified; M19.90 Unspecified osteoarthritis, unspecified site; Z20.822 Contact with and (suspected) exposure to COVID-19
CPT/HCPCS: 36415; 71045; 71275; 80048; 80053; 81003; 81015; 83880; 84484; 85025; 85379; 87811; 93005; 93306; 93970; 96360; 96361; 96372; 99285; G0378; J1100; J1650; J2270; J7030; Q9967

== ENCOUNTER 2021-12-10 20:41 | Inpatient (IN) | payer OTHER, MEDICARE ==
--- NOTE | 2021-12-10 21:20 | RAD REPORT ---
EXAM DESCRIPTION: RAD - Ankle Left 3 View - 12/10/2021 9:01 pm CLINICAL HISTORY: fall, leg and ankle pain COMPARISON: No comparisonsNo comparisons FINDINGS: No fracture, dislocation or periosteal reaction. No joint effusion seen. No joint space na rrowing. Minimal plantar spur is present. Prominent soft tissues of the lower leg believed be baselin e. No air or foreign body seen. IMPRESSION: Negative left ankle for fracture or other acute finding.
--- NOTE | 2021-12-10 21:22 | RAD REPORT ---
EXAM DESCRIPTION: RAD - Ankle Right 3 View - 12/10/2021 9:03 pm CLINICAL HISTORY: fall COMPARISON: Ankle Left 3 View dated 12/10/2021; Ankle Right 3 View dated 10/29/2021 FINDINGS: Lateral view shows a small crescent shaped bone density avulsed from the anterior superior margin of the talus. This is new from the October 29 comparison study. Distal tibia and fibula are inta ct. Punctate plantar spur is seen. No joint effusion seen. No joint space narrowing. Pronounced soft tissue thickening along the lobar right leg is baseline. No foreign body seen. IMPRESSION: Small bone avulsion from the anterior dorsal margin of the talus.
--- NOTE | 2021-12-10 21:47 | RAD REPORT ---
EXAM DESCRIPTION: CT - CTHCSPWOC - 12/10/2021 9:28 pm CLINICAL HISTORY: fall, head and neck trauma COMPARISON: No comparisons TECHNIQUE: Axial 5 mm thick images of the head were obtained. Axial 2 mm thick images of the cervic al spine were obtained with sagittal and coronal reconstruction images generated and reviewed. All CT scans are performed using dose optimization technique as appropriate and may include automated exposure control or mA/KV adjustment according to patient size. FINDINGS: No intracranial hemorrhage, mass, edema or acute intracranial finding. No suspicion for ac alfonso infarction. Atrophy changes are minimal. Moderate chronic ischemic change seen in the white matte r. Mastoid air cells and paranasal sinuses are clear. No globe or orbit abnormality seen. Cervical bodies are normal in height. Very slight retrolisthesis of C5 on C6 noted. C5-6 and C6-7 dis c space narrowing present. Advanced degenerative change present at the dens C1 level. No fracture or acute bony abnormality. Prominent facet joint degenerative changes are present. Multilevel bony karmen inal encroachment seen. Central canal detail is inherently limited. No paraspinal mass or hematoma. IMPRESSION: Negative CT head examination for acute finding. Minimal atrophy and moderate chronic isc hemic changes are present. Negative CT cervical spine examination for acute finding. Cervical spine degenerative change present as detailed.
--- NOTE | 2021-12-10 22:19 | ER ---
Nurse's Notes [facility] Name: Rodolfo Arredondo Age: 76 yrs Sex: Female : 1945 Arrival Date: 12/10/2021 Time: 20:43 Bed 2 Private MD: Diagnosis: Muscle weakness (generalized);Fall on same level, unspecified;Avulsion fracture (chip fracture) of talus;Contusion of knee Presentation: 12/10 20:45 Chief complaint: EMS states: Pt called EMS for a fall. She was in the restroom, lost jb4 her footing and fell injuring her right ankle, knee and left leg. Care prior to arrival: None. Mechanism of Injury: Fall from standing position. Trauma event details: Injury occurred in the [facility]. 20:45 Acuity: CY 2 jb4 20:45 Method Of Arrival: EMS: [facility] jb4 20:54 Coronavirus screen: Vaccine status: Patient reports receiving the 2nd dose of the covid jb4 vaccine. Patient reports receiving the 1st dose of the Covid vaccine. Ebola Screen: No symptoms or risks identified at this time. Initial Sepsis Screen: Does the patient meet any 2 criteria? Yes Does the patient have a suspected source of infection? No. Patient's initial sepsis screen is negative. Risk Assessment: Do you want to hurt yourself or someone else? Patient reports no desire to harm self or others. Onset of symptoms was December 10, 2021. Transition of care: patient was not received from another setting of care. Trauma Activation: Alert Physician: ED Physician; Name: Dr. Hunter; Notified At: 20:44; Arrived At: Physician: General Surgeon; Name: ; Notified At: 20:44; Arrived At: Physician: Radiology; Name: Sol; Notified At: 20:44; Arrived At: 20:45 Physician: Respiratory; Name: ; Notified At: 20:44; Arrived At: Physician: Lab; Name: ; Notified At: 20:44; Arrived At: Historical: - Allergies: 20:55 No Known Allergies; jb4 - PMHx: 20:55 Asthma; Back pain; constipation; dry eyes; High Cholesterol; hot flashes; macular jb4 degeneration; spinal mass; - PSHx: 20:55 HELENA knee replacement; Rotator cuff; cataract; jb4 - Immunization history: Last tetanus immunization: unknown. - Social history:: Smoking status: Patient denies any tobacco usage or history of. Screenin:45 Abuse screen: Denies threats or abuse. Nutritional screening: No deficits noted. jb4 Tuberculosis screening: No symptoms or risk factors identified. Fall risk None identified. 20:45 Fall Risk Fall in past 12 months (25 points). Secondary diagnosis (15 points) impaired jb4 mobility, Total Barr Fall Scale indicates High Risk Score (45 or more points). Fall prevention measures have been instituted. Side Rails Up X 2 Placed Close to Nursing Station Frequent Obs/Assessments Occuring As available patient and family educated on Fall Prevention Program and Strategies. Primary Survey: 20:45 NO uncontrolled hemorrhage observed. A: The client is awake and alert. The airway is jb4 patent. Breathing/Chest: Spontaneous respiratory effort, equal unlabored respirations, breath sounds clear bilaterally, regular pattern, symmetrical chest rise and fall. Circulation: No external hemorrhage present. Regular and strong central pulse, skin warm/dry/normal color. Disability Pupils are equal, round, reactive to light and accommodation. Client is alert. Exposure/Environment: All clothing and personal items were removed. Forensic evidence collection is not deemed to be indicated at this time. Items placed in patient belonging bag. 21:45 Reassessment Alertness and Airway: Awake and alert. The airway is patent. Breathing: jb4 Spontaneous respiratory effort, equal unlabored respirations, breath sounds clear bilaterally, regular pattern with symmetrical chest rise and fall. Circulation: No external hemorrhage noted. Regular and strong central pulse, skin warm/dry/normal color. Disability: Pupils Pupils are equal, round, reactive to light and accomodation. Alert. Assessment: 20:45 General: Appears in no apparent distress. comfortable, Behavior is calm, cooperative, jb4 appropriate for age. Pain: Complains of pain in right knee, anterior aspect of right ankle and left leg. Neuro: Level of Consciousness is awake, alert, obeys commands, Oriented to person, place, time, situation. EENT: No signs and/or symptoms were reported regarding the EENT system. Cardiovascular: Patient's skin is warm and dry. Respiratory: Airway is patent Respiratory effort is even, unlabored, Respiratory pattern is regular, symmetrical. GI: No signs and/or symptoms were reported involving the gastrointestinal system. : No signs and/or symptoms were reported regarding the genitourinary system. Derm: Skin is intact, Skin is pink, warm \T\ dry. Bruising that is on right knee Light blue. Musculoskeletal: Circulation, motion, and sensation intact. Range of motion: intact in all extremities. 21:30 Reassessment: Patient appears in no apparent distress at this time. Patient and/or jb4 family updated on plan of care and expected duration. Pain level reassessed. Patient is alert, oriented x 3, equal unlabored respirations, skin warm/dry/pink. 22:30 Reassessment: Patient appears in no apparent distress at this time. Patient and/or jb4 family updated on plan of care and expected duration. Pain level reassessed. Patient is alert, oriented x 3, equal unlabored respirations, skin warm/dry/pink. 23:15 Reassessment: Patient appears in no apparent distress at this time. Patient and/or jb4 family updated on plan of care and expected duration. Pain level reassessed. Patient is alert, oriented x 3, equal unlabored respirations, skin warm/dry/pink. Attempted to stand patient. Pt reports too weak to try and stand, reports pain when staff attempts to assist. 12/11 00:45 Reassessment: Patient appears in no apparent distress at this time. Patient and/or jb4 family updated on plan of care and expected duration. Pain level reassessed. Patient is alert, oriented x 3, equal unlabored respirations, skin warm/dry/pink. Vital Signs: 12/10 20:45 BP 176 / 89; Pulse 86; Resp 16; Pulse Ox 97% on R/A; jb4 21:45 BP 164 / 87; Pulse 77; Resp 16; Pulse Ox 97% on R/A; jb4 22:45 BP 163 / 97; Pulse 78; Resp 17; Pulse Ox 97% on R/A; jb4 12/11 00:15 BP 146 / 90; Pulse 77; Resp 16; Temp 97.8(O); Pulse Ox 97% on R/A; jb4 Jun Coma Score: 12/10 20:45 Eye Response: spontaneous(4). Verbal Response: oriented(5). Motor Response: obeys jb4 commands(6). Total: 15. 21:45 Eye Response: spontaneous(4). Verbal Response: oriented(5). Motor Response: obeys jb4 commands(6). Total: 15. 22:45 Eye Response: spontaneous(4). Verbal Response: oriented(5). Motor Response: obeys jb4 commands(6). Total: 15. 12/11 00:15 Eye Response: spontaneous(4). Verbal Response: oriented(5). Motor Response: obeys jb4 commands(6). Total: 15. Trauma Score (Adult): 12/10 20:45 Eye Response: spontaneous(1); Verbal Response: oriented(1); Motor Response: obeys jb4 commands(2); Systolic BP: > 89 mm Hg(4); Respiratory Rate: 10 to 29 per min(4); [place] Score: 15; Trauma Score: 12 21:45 Eye Response: spontaneous(1); Verbal Response: oriented(1); Motor Response: obeys jb4 commands(2); Systolic BP: > 89 mm Hg(4); Respiratory Rate: 10 to 29 per min(4); Jun Score: 15; Trauma Score: 12 22:45 Eye Response: spontaneous(1); Verbal Response: oriented(1); Motor Response: obeys jb4 commands(2); Systolic BP: > 89 mm Hg(4); Respiratory Rate: 10 to 29 per min(4); [place] Score: 15; Trauma Score: 12 12/11 00:15 Eye Response: spontaneous(1); Verbal Response: oriented(1); Motor Response: obeys jb4 commands(2); Systolic BP: > 89 mm Hg(4); Respiratory Rate: 10 to 29 per min(4); Jun Score: 15; Trauma Score: 12 ED Course: 12/10 20:43 Patient arrived in ED. jb4 20:45 Patient has correct armband on for positive identification. Bed in low position. Call jb4 light in reach. Side rails up X 1. Patient maintains SpO2 saturation greater than 95% on room air. 20:45 Patient maintains SpO2 saturation greater than 95% on room air. Thermoregulation: warm jb4 blanket given to patient. 20:48 Hayden Hunter DO is Attending Physician. ms3 20:52 Triage completed. jb4 20:55 Arm band placed on right wrist. jb4 21:02 Ankle Left 3 View XRAY In Process Unspecified. EDMS 21:02 Ankle Right 3 View XRAY In Process Unspecified. EDMS 21:30 CT Head C Spine In Process Unspecified. EDMS 22:17 Kwan Romero MD is Referral Physician. ms3 23:12 Bryan Fuentes, RN is Primary Nurse. jb4 23:24 Inserted saline lock: 22 gauge in right antecubital area, using aseptic technique. ds4 Blood collected. 23:28 Lan Crandall is Hospitalizing Provider. ms3 12/11 00:50 No provider procedures requiring assistance completed. Patient admitted, IV remains in jb4 place. Administered Medications: No medications were administered Intake: 01:01 PO: 0ml; Total: 0ml. jb4 Output: 01:01 Urine: 0ml; Total: 0ml. jb4 Outcome: 12/10 22:18 Discharge ordered by . ms3 23:29 Decision to Hospitalize by Provider. ms3 12/11 01:00 Admitted to Med/surg accompanied by tech, via stretcher, room 202, with chart. jb4 Condition: stable Discharge instructions given to patient, Instructed on the need for admit, Demonstrated understanding of instructions. 01:02 Patient's length of stay in the Emergency Department was greater than 2 hours. Dispo jb4 changed from discharge to admit.Patient's length of stay extended due to 01:17 Patient left the ED. jb4 Signatures: Dispatcher [employer] EDJens Epps ds4 Bryan Fuentes, JOANA RN jb4 Hayden Hunter DO DO ms3 Corrections: (The following items were deleted from the chart) 01:15 00:15 BP 146 / 90; Pulse 77bpm; Resp 16bpm; Pulse Ox 97% RA; jb4 jb4
--- NOTE | 2021-12-10 22:19 | EDPHYS ---
Physician Documentation [facility] Name: Rodolfo Arredondo Age: 76 yrs Sex: Female : 1945 Arrival Date: 12/10/2021 Time: 20:43 Bed 2 Private MD: ED Physician Hayden Hunter HPI: 12/11 00:35 This 76 yrs old Female presents to ER via EMS with complaints of bilateral ankle pain ms3 s/p fall. 00:35 Details of fall: The patient fell from an upright position, while standing. Onset: The ms3 symptoms/episode began/occurred just prior to arrival. Associated injuries: The patient sustained Bilateral ankle pain. Severity of symptoms: At their worst the symptoms were moderate, in the emergency department the symptoms are unchanged. 76-year-old female presents status post fall. Patient is having bilateral ankle pain after her knees got weak causing her to fall. Patient denies alleviating factors. Patient states pain is worse with movement. Patient denies loss of consciousness, headache, neck pain.. Historical: - Allergies: 12/10 20:55 No Known Allergies; jb4 - PMHx: 20:55 Asthma; Back pain; constipation; dry eyes; High Cholesterol; hot flashes; macular jb4 degeneration; spinal mass; - PSHx: 20:55 HELENA knee replacement; Rotator cuff; cataract; jb4 - Immunization history: Last tetanus immunization: unknown. - Social history:: Smoking status: Patient denies any tobacco usage or history of. ROS: 12/11 00:35 Constitutional: Negative for fever, and chills. Eyes: Negative for injury, pain, ms3 redness, and discharge, Neck: Negative for injury, pain, and swelling, Cardiovascular: Negative for chest pain, and palpitations. Respiratory: Negative for shortness of breath, cough, wheezing, and pleuritic chest pain, Abdomen/GI: Negative for abdominal pain, nausea, vomiting, diarrhea, and constipation. MS/extremity: Positive for pain. All other systems are negative. Exam: 00:35 Constitutional: This is a well developed, well nourished patient who is awake, alert, ms3 and in no acute distress. Head/Face: Normocephalic, atraumatic. Eyes: Pupils equal round and reactive to light, extra-ocular motions intact. Lids and lashes normal. Conjunctiva and sclera are non-icteric and not injected. Periorbital areas with no swelling, redness, or edema. Chest/axilla: Normal chest wall appearance and motion. Nontender with no deformity. Respiratory: Lungs have equal breath sounds bilaterally, clear to auscultation and percussion. No rales, rhonchi or wheezes noted. No increased work of breathing, no retractions or nasal flaring. Abdomen/GI: Soft, non-tender, with normal bowel sounds. No distension or tympany. No guarding or rebound. No evidence of tenderness throughout. 00:35 Skin: contusion on right knee. Vital Signs: 12/10 20:45 BP 176 / 89; Pulse 86; Resp 16; Pulse Ox 97% on R/A; jb4 21:45 BP 164 / 87; Pulse 77; Resp 16; Pulse Ox 97% on R/A; jb4 22:45 BP 163 / 97; Pulse 78; Resp 17; Pulse Ox 97% on R/A; jb4 12/11 00:15 BP 146 / 90; Pulse 77; Resp 16; Temp 97.8(O); Pulse Ox 97% on R/A; jb4 Jun Coma Score: 12/10 20:45 Eye Response: spontaneous(4). Verbal Response: oriented(5). Motor Response: obeys jb4 commands(6). Total: 15. 21:45 Eye Response: spontaneous(4). Verbal Response: oriented(5). Motor Response: obeys jb4 commands(6). Total: 15. 22:45 Eye Response: spontaneous(4). Verbal Response: oriented(5). Motor Response: obeys jb4 commands(6). Total: 15. 12/11 00:15 Eye Response: spontaneous(4). Verbal Response: oriented(5). Motor Response: obeys jb4 commands(6). Total: 15. Trauma Score (Adult): 12/10 20:45 Eye Response: spontaneous(1); Verbal Response: oriented(1); Motor Response: obeys jb4 commands(2); Systolic BP: > 89 mm Hg(4); Respiratory Rate: 10 to 29 per min(4); [place] Score: 15; Trauma Score: 12 21:45 Eye Response: spontaneous(1); Verbal Response: oriented(1); Motor Response: obeys jb4 commands(2); Systolic BP: > 89 mm Hg(4); Respiratory Rate: 10 to 29 per min(4); Jun Score: 15; Trauma Score: 12 22:45 Eye Response: spontaneous(1); Verbal Response: oriented(1); Motor Response: obeys jb4 commands(2); Systolic BP: > 89 mm Hg(4); Respiratory Rate: 10 to 29 per min(4); Jun Score: 15; Trauma Score: 12 12/11 00:15 Eye Response: spontaneous(1); Verbal Response: oriented(1); Motor Response: obeys jb4 commands(2); Systolic BP: > 89 mm Hg(4); Respiratory Rate: 10 to 29 per min(4); [place] Score: 15; Trauma Score: 12 MDM: 12/10 20:55 Patient medically screened. ms3 12/11 00:35 Differential diagnosis: closed head injury, contusion, fracture, sprain, strain. Data ms3 reviewed: vital signs, nurses notes, lab test result(s), radiologic studies, and as a result, I will admit patient. Counseling: I had a detailed discussion with the patient and/or guardian regarding: the historical points, exam findings, and any diagnostic results supporting the discharge/admit diagnosis, lab results, radiology results, the need for further work-up and treatment in the hospital. ED course: Discussed discharge with patient. Patient states she lives alone and is unable to walk and too weak to perfrom ADLs. Attempted to contact [facility] without success. Discussed case with ODESSA Rodriguez and she accepts patient on behalf of Dr Crandall.. 12/10 23:10 Order name: CBC with Diff 3 12/10 23:10 Order name: BMP ms3 12/10 20:53 Order name: CT Head C Spine; Complete Time: 22:00 ms3 12/10 23:11 Order name: SARS RAPID ms3 12/10 23:32 Order name: Basic Metabolic Panel; Complete Time: 23:58 EDMS 12/10 23:32 Order name: CBC with Automated Diff; Complete Time: 23:58 EDMS 12/10 20:53 Order name: Ankle Left 3 View XRAY; Complete Time: 22:00 ms3 12/10 20:53 Order name: Ankle Right 3 View XRAY; Complete Time: 22:00 ms3 12/10 22:02 Order name: Orthopedic shoe: Ortho Boot; Complete Time: 23:13 ms3 12/10 23:48 Order name: Social Service Consult EDMS Administered Medications: No medications were administered Disposition Summary: 12/10/21 23:29 Hospitalization Ordered Hospitalization Status: Observation ms3 Provider: Lan Crandall ms3 Location: Telemetry/MedSurg (observation)(12/10/21 23:29) ms3 Condition: Stable(12/10/21 23:29) ms3 Problem: new ms3 Symptoms: are unchanged ms3 Bed/Room Type: Standard ms3 Room Assignment: 202(12/11/21 00:33) mw Diagnosis - Muscle weakness (generalized) ms3 - Fall on same level, unspecified(12/10/21 23:29) ms3 - Avulsion fracture (chip fracture) of talus(12/10/21 23:29) ms3 - Contusion of knee ms3 Forms: - Medication Reconciliation Form ms3 - SBAR form ms3 Signatures: Dispatcher [employer] EDMS Karlie Blanton RN RN mw Bryan Fuentes RN RN jb4 Hayden Hunter DO DO ms3 Sera Plummer PA PA sb3 Corrections: (The following items were deleted from the chart) 12/10 23: 22:18 Home ms3 ms3 23: 22:18 Stable ms3 ms3 23: 22:18 Avulsion fracture (chip fracture) of talus ms3 ms3 23: 22:18 Fall on same level, unspecified ms3 ms3 12/11 00:33 12/10 23:29 ms3 mw
[2021-12-10 23:37] LABS: Absolute Lymphocytes (CBC) 0.8 K/uL (0.7-4.9); Hematocrit 43.1 % (36.0-45.0); Lymphocytes % 11.2 % (15.3-44.8); MPV 7.4 fL (7.6-11.3); RBC Red Blood Cell Count 4.74 M/uL (3.86-4.86)
[2021-12-10] MEDS ORDERED: ONDANSETRON 4 MG (ODT) TAB PO PRN (23:38)
--- NOTE | 2021-12-10 23:44 | P.HP ---
Certification for Inpatient Patient admitted to: Observation With expected LOS: <2 Midnights Patient will require the following post-hospital care: Rehabilitation Practitioner: I am a practitioner with admitting privileges, knowledge of patient current condition, hospital course, and medical plan of care. Services: Services provided to patient in accordance with Admission requirements found in Title 42 Section 412.3 of the Code of Federal Regulations Patient History Date of Service: 12/11/21 Reason for admission: Weakness History of Present Illness: Patient is a 76 year-old female with HLD, GERD, obesity, and asthma who presented to the ED via EMS after fall. Patient was in the bathroom when she tripped and fell, injuring her left leg. Labs without abnormalities. CT traumagram negative. Xray showed small bone avulsion from the naterior dorsal margin of the talus. She was put in an orthopedic boot. ED attempted to discharge patient but she insisted that she was too weak and in too much pain to go home. Nursing staff attempted to help her ambulate, and she again stated that she was in too much pain. ED provider wishes to admit patient for observation for generalized weakness and intractable pain. Allergies No Known Allergies Allergy (Verified 12/06/21 15:02) Home Medications: Pantoprazole [Protonix Tab*] 40 mg PO DAILY 04/29/21 Gabapentin 3 cap PO BID 12/06/21 Tramadol HCl [Ultram] 1 tab PO Q4HR 12/06/21 Apixaban [Eliquis] 10 mg PO BID #70 tablet 12/07/21 Hydrocodone 5/APAP 325 [[place] 5/325] 1 tab PO Q6H PRN #30 tab 12/07/21 dexAMETHasone [Dexamethasone] 2 mg PO BID #8 mg 12/07/21 - Past Medical/Surgical History Diabetic: No -: Arthritis -: Morbid Obesity -: Hyperlipidemia -: GERD -: Asthma -: Bilateral knee sx -: Right rotator cuff sx -: Tubaligation - Social History Alcohol use: No CD- Drugs: No Caffeine use: No Review of Systems General: Weakness Musculoskeletal: Leg Pain Physical Examination - Physical Exam General: Alert, In no apparent distress, Obese HEENT: Atraumatic, PERRLA, EOMI, Sclerae nonicteric Neck: Supple, 2+ carotid pulse no bruit, No LAD, Without JVD or thyroid abnormality Respiratory: Clear to auscultation bilaterally, Normal air movement Cardiovascular: Regular rate/rhythm, Normal S1 S2 Gastrointestinal: Normal bowel sounds, No tenderness Musculoskeletal: Cast in place Integumentary: No rashes Neurological: Normal speech, Normal tone, Normal affect - Studies Laboratory Data (last 24 hrs) 12/10/21 23:20: WBC 7.10 D, Hgb 14.4, Hct 43.1, Plt Count 306 D Assessment and Plan - Problems (Diagnosis) (1) Talus fracture Current Visit: Yes Status: Acute Qualifiers: Encounter type: initial encounter Fracture type: closed Fracture morphology: avulsion Fracture alignment: nondisplaced Laterality: left Qualified Code(s): S92.155A - Nondisplaced avulsion fracture (chip fracture) of left talus, initial encounter for closed fracture (2) Generalized weakness Current Visit: Yes Status: Acute (3) GERD (gastroesophageal reflux disease) Current Visit: Yes Status: Chronic Qualifiers: Esophagitis presence: without esophagitis Qualified Code(s): K21.9 - Gastro-esophageal reflux disease without esophagitis (4) Hyperlipidemia Current Visit: Yes Status: Chronic Qualifiers: Hyperlipidemia type: unspecified Qualified Code(s): E78.5 - Hyperlipidemia, unspecified (5) Lymphedema Current Visit: Yes Status: Chronic (6) Morbid obesity with BMI of 45.0-49.9, adult Current Visit: Yes Status: Chronic (7) Pulmonary embolism Current Visit: Yes Status: Chronic Qualifiers: Pulmonary embolism type: single subsegmental (without acute cor pulmonale) Qualified Code(s): I26.93 - Single subsegmental pulmonary embolism without acute cor pulmonale - Plan -[place] PRN pain -Patient will need orthopedic outpatient follow up -Physical therapy consulted -Patient may require placement upon discharge for rehabilitation if her weakness continue -Patient was discharged from this facility 3 days ago after undergoing treatment of PE. Continue eliquis- 10 mg BID -Monitor and replete electrolytes per protocol -Reconcile and continue home medications -Full code Discharge Plan: Home Plan to discharge in: 24 Hours - Advance Directives Does patient have a Living Will: No Does patient have a Durable POA for Healthcare: No - Code Status/Comfort Care Code Status Assessed: Yes (Full) Critical Care: No Time Spent Managing Pts Care (In Minutes): 50
[2021-12-10 23:51] LABS: Potassium 3.5 mmol/L (3.5-5.1)
[2021-12-11 00:31] LABS: SARS-CoV-2 Antigen Rapid Res Negative (Negative)
[2021-12-11 02:05] VITALS: BMI 43.1
[2021-12-11] MEDS: HYDROCODONE/APAP 7.5/325 MG TAB PO PRN ×2 (02:06→08:35)
[2021-12-11] MEDS ORDERED: APIXABAN 5 MG TABLET PO SCH ×2 (09:00→21:00)
--- NOTE | 2021-12-11 12:13 | P.PN ---
Subjective Date of Service: 12/11/21 Chief Complaint: Weakness Patient has no new complaint. States her foot pain is better. She states that she is generally weak and has not been able to transfer from bed to her walker since she got discharged from the hospital. One reason for coming to the ED 4 days ago was because she could not get up from the toilet seat and EMS had to pick her up and bring her to the ED after noting low BP. Physical Examination - Vital Signs Temperature: 97.3 F Blood Pressure: 133/61 Pulse: 78 Respirations: 16 Pulse Ox (%): 95 - Studies Laboratory Data (last 24 hrs) 12/10/21 23:20: Sodium 139, Potassium 3.5, BUN 28 H, Creatinine 0.69, Glucose 112 H 12/10/21 23:20: WBC 7.10 D, Hgb 14.4, Hct 43.1, Plt Count 306 D 12/10/21 23:10: Sodium Cancelled, Potassium Cancelled, BUN Cancelled, Creatinine Cancelled, Glucose Cancelled 12/10/21 23:10: WBC Cancelled, Hgb Cancelled, Hct Cancelled, Plt Count Cancelled Assessment And Plan - Current Problems (Diagnosis) (1) Generalized weakness Current Visit: Yes Status: Acute (2) Talus fracture Current Visit: Yes Status: Acute Qualifiers: Encounter type: initial encounter Fracture type: closed Fracture morphology: avulsion Fracture alignment: nondisplaced Laterality: left Qualified Code(s): S92.155A - Nondisplaced avulsion fracture (chip fracture) of left talus, initial encounter for closed fracture (3) GERD (gastroesophageal reflux disease) Current Visit: Yes Status: Chronic Qualifiers: Esophagitis presence: without esophagitis Qualified Code(s): K21.9 - Gastro-esophageal reflux disease without esophagitis (4) Lymphedema Current Visit: Yes Status: Chronic (5) Morbid obesity with BMI of 45.0-49.9, adult Current Visit: Yes Status: Chronic (6) Pulmonary embolism Current Visit: Yes Status: Chronic Qualifiers: Pulmonary embolism type: single subsegmental (without acute cor pulmonale) Qualified Code(s): I26.93 - Single subsegmental pulmonary embolism without acute cor pulmonale - Plan Physical Exam General: Alert, In no apparent distress, morbidly obese Neck: Supple, Without JVD. Respiratory: Clear to auscultation bilaterally, Normal air movement Cardiovascular: Regular rate/rhythm, Normal S1 S2 Gastrointestinal: Normal bowel sounds, No tenderness Musculoskeletal: Bilateral lower extremity lymphedema Integumentary: Bruise at medial aspect of left foot. Neurological: Normal speech, Normal tone, Normal affect. Globally weak. Plan: Pain control with morphine and [place]. PT to evaluate generalized weakness. Continue anticoagulation. Right foot ortho boot. Reconcile and continue other home medications.
[2021-12-11] MEDS: HYDROCODONE/APAP 5/325 MG TAB PO PRN (16:19)
[2021-12-11] MEDS: GABAPENTIN 300 MG CAP PO SCH (20:49)
[2021-12-11] MEDS: APIXABAN 5 MG TABLET PO SCH (20:50)
[2021-12-11] MEDS ORDERED: POTASSIUM CL SA 10 MEQ TAB PO ONE (21:00)
[2021-12-12] MEDS: HYDROCODONE/APAP 5/325 MG TAB PO PRN ×3 (00:29→19:33)
[2021-12-12 06:39] LABS: Potassium 3.8 mmol/L (3.5-5.1)
[2021-12-12] MEDS: PANTOPRAZOLE 40MG TABLET PO SCH (08:32)
[2021-12-12] MEDS: APIXABAN 5 MG TABLET PO SCH ×2 (08:32→19:33)
[2021-12-12] MEDS: GABAPENTIN 300 MG CAP PO SCH ×2 (08:32→19:34)
--- NOTE | 2021-12-12 13:16 | P.PN ---
Subjective Date of Service: 12/12/21 Chief Complaint: Weakness Patient has no new complaint. She reports intermittent pain in bilateral feet. Physical Examination - Vital Signs Temperature: 97.2 F Blood Pressure: 128/60 Pulse: 85 Respirations: 19 Pulse Ox (%): 93 Assessment And Plan - Current Problems (Diagnosis) (1) Generalized weakness Current Visit: Yes Status: Acute (2) Talus fracture Current Visit: Yes Status: Acute Qualifiers: Encounter type: initial encounter Fracture type: closed Fracture mor phology: avulsion Fracture alignment: nondisplaced Laterality: left Qualified Code(s): S92.155A - Nondisplaced avulsion fracture (chip fracture) of left talus, initial encounter for closed fracture (3) GERD (gastroesophageal reflux disease) Current Visit: Yes Status: Chronic Qualifiers: Esophagitis presence: without esophagitis Qualified Code(s): K21.9 - Gastro-esophageal reflux disease without esophagitis (4) Lymphedema Current Visit: Yes Status: Chronic (5) Morbid obesity with BMI of 45.0-49.9, adult Current Visit: Yes Status: Chronic (6) Pulmonary embolism Current Visit: Yes Status: Chronic Qualifiers: Pulmonary embolism type: single subsegmental (without acute cor pulmonale) Qualified Code(s): I26.93 - Single subsegmental pulmonary embolism without acute cor pulmonale - Plan Physical Exam General: Alert, In no apparent distress, morbidly obese Neck: Supple, Without JVD. Respiratory: Clear to auscultation bilaterally, Normal air movement Cardiovascular: Regular rate/rhythm, Normal S1 S2 Gastrointestinal: Normal bowel sounds, No tenderness Musculoskeletal: Bilateral lower extremity lymphedema Integumentary: Bruise at medial aspect of left foot. Neurological: Normal speech, Normal tone, Normal affect. Globally weak. Plan: Pain control with morphine and [place]. PT to evaluate generalized weakness. Continue anticoagulation. Right foot ortho boot. Continue other home medications. Patient will be a good candidate for inpatient rehab. Disposition: [facility] rehab pending PT eval and insurance authorization.
[2021-12-12] MEDS ORDERED: MORPHINE 2 MG/ML SYR IV PRN (21:03)
[2021-12-13] MEDS: HYDROCODONE/APAP 5/325 MG TAB PO PRN ×3 (01:07→15:50)
[2021-12-13] MEDS: GABAPENTIN 300 MG CAP PO SCH (09:17)
[2021-12-13] MEDS: APIXABAN 5 MG TABLET PO SCH (09:17)
[2021-12-13] MEDS: PANTOPRAZOLE 40MG TABLET PO SCH (09:17)
--- NOTE | 2021-12-13 12:42 | P.PN ---
Subjective Date of Service: 12/13/21 Chief Complaint: Weakness Patient has no new complaint. She reports persistent pain in both feet, worse on the left. She is also complaining of back pain. Physical Examination - Vital Signs Temperature: 97.1 F Blood Pressure: 168/68 Pulse: 74 Respirations: 18 Pulse Ox (%): 97 Assessment And Plan - Current Problems (Diagnosis) (1) Generalized weakness Current Visit: Yes Status: Acute (2) Talus fracture Current Visit: Yes Status: Acute Qualifiers: Encounter type: initial encounter Fracture type: closed Fracture morphology: avulsion Fracture alignment: nondisplaced Laterality: left Q ualified Code(s): S92.155A - Nondisplaced avulsion fracture (chip fracture) of left talus, initial encounter for closed fracture (3) GERD (gastroesophageal reflux disease) Current Visit: Yes Status: Chronic Qualifiers: Esophagitis presence: without esophagitis Qualified Code(s): K21.9 - Gastro-esophageal reflux disease without esophagitis (4) Lymphedema Current Visit: Yes Status: Chronic (5) Morbid obesity with BMI of 45.0-49.9, adult Current Visit: Yes Status: Chronic (6) Pulmonary embolism Current Visit: Yes Status: Chronic Qualifiers: Pulmonary embolism type: single subsegmental (without acute cor pulmonale) Qualified Code(s): I26.93 - Single subsegmental pulmonary embolism without acute cor pulmonale - Plan Physical Exam General: Alert, In no apparent distress, morbidly obese Neck: Without JVD. Respiratory: Clear to auscultation bilaterally, Normal air movement Cardiovascular: Regular rate/rhythm, Normal S1 S2 Gastrointestinal: Normal bowel sounds, No tenderness Musculoskeletal: Bilateral lower extremity lymphedema Integumentary: Bruise at medial aspect of left foot. Neurological: Normal speech, Normal tone, Normal affect. Globally weak. Plan: Pain control with morphine and [place]. Continue PT Continue anticoagulation. Right foot ortho boot. Continue other home medications. Patient will be a good candidate for inpatient rehab. Clinically stable Disposition: [facility] evaluating for acute rehab.
[2021-12-13] MEDS ORDERED: CYCLOBENZAPRINE 10 MG TAB PO PRN (16:09)
--- NOTE | 2021-12-13 18:50 | P.DS ---
Admission Date: 12/13/21 Discharge Date: 12/13/21 Disposition: TRANSFER TO INPATIENT REHAB Discharge Condition: [facility]IR Reason for Admission: Weakness - Problems (1) Generalized weakness Current Visit: Yes Status: Acute (2) Talus fracture Current Visit: Yes Status: Acute Qualifiers: Encounter type: initial encounter Fracture type: closed Fracture morphology: avulsion Fracture alignment: nondisplaced Laterality: left Qualified Code(s): S92.155A - Nondisplaced avulsion fracture (chip fracture) of left talus, initial encounter for closed fracture (3) GERD (gastroesophageal reflux disease) Current Visit: Yes Status: Chronic Qualifiers: Esophagitis presence: without esophagitis Qualified Code(s): K21.9 - Gastro-esophageal reflux disease without esophagitis (4) Lymphedema Current Visit: Yes Status: Chronic (5) Morbid obesity with BMI of 45.0-49.9, adult Current Visit: Yes Status: Chronic (6) Pulmonary embolism Current Visit: Yes Status: Chronic Qualifiers: Pulmonary embolism type: single subsegmental (without acute cor pulmonale) Qualified Code(s): I26.93 - Single subsegmental pulmonary embolism without acute cor pulmonale Brief History of Present Illness: Patient is a 76 year-old female with HLD, GERD, obesity, and asthma who presented to the ED via EMS after fall. Patient was in the bathroom when she tripped and fell, injuring her left leg. Labs without abnormalities. CT traumagram negative. Xray showed small bone avulsion from the anterior dorsal margin of the talus. She was put in an orthopedic boot. ED attempted to discharge patient but she insisted that she was too weak and in too much pain to go home. Nursing staff attempted to help her ambulate, and she again stated that she was in too much pain. Patient hospitalized for further management of intractable pain. Hospital Course: Patient admitted to the medical floor and started on opioids and cyclobenzaprine as needed for pain and muscle spasms. Patient seen and evaluated by physical therapy. He is on Eliquis for pulmonary embolism which was continued during the hospital stay. She has been accepted to continue therapy at inpatient rehab. Patient is clinically stable for discharge. Vital Signs/Physical Exam: Temp Pulse Resp BP Pulse Ox 97.2 F 74 24 H 134/59 L 96 12/13/21 16:00 12/13/21 16:00 12/13/21 16:00 12/13/21 16:00 12/13/21 16:00 General: Alert, In no apparent distress, Oriented x3, Obese HEENT: Mucous membr. moist/pink Neck: Supple, JVD not distended Respiratory: Clear to auscultation bilaterally, Normal air movement Cardiovascular: No edema, Regular rate/rhythm Gastrointestinal: Soft and benign, Non-distended Integumentary: No cyanosis, Other (Bruise medial aspect of left foot) Neurological: Other (No focal motor deficit) Laboratory Data at Discharge: WBC 7.10 K/uL (4.3-10.9) D 12/10/21 23:20 Hgb 14.4 g/dL (12.0-15.0) 12/10/21 23:20 Hct 43.1 % (36.0-45.0) 12/10/21 23:20 Plt Count 306 K/uL (152-406) D 12/10/21 23:20 Sodium 139 mmol/L (136-145) 12/12/21 06:00 Potassium 3.8 mmol/L (3.5-5.1) 12/12/21 06:00 BUN 25 mg/dL (7-18) H 12/12/21 06:00 Creatinine 0.58 mg/dL (0.55-1.3) 12/12/21 06:00 Glucose 110 mg/dL (74-106) H 12/12/21 06:00 Home Medications: Pantoprazole [Protonix Tab*] 40 mg PO DAILY 04/29/21 Gabapentin 3 cap PO BID 12/06/21 Apixaban [Eliquis] 5 mg PO BID #60 tab 12/13/21 Cyclobenzaprine [Flexeril*] 10 mg PO TIDP PRN tab 12/13/21 Hydrocodone 5/APAP 325 [[place] 5/325*] 1 tab PO Q6H PRN #15 tab 12/13/21 New Medications: Apixaban [Eliquis] 5 mg PO BID #60 tab Hydrocodone 5/APAP 325 [[place] 5/325*] 1 tab PO Q6H PRN #15 tab PRN Reason: Pain Diet: AHA Activity: Fall precautions Followup: NONE,NONE [Primary Care Provider] - 1-2 Weeks
[2021-12-13] MEDS ORDERED: ELIQUIS 5 MG TABLET PO SCH (21:00)
[2021-12-13] MEDS ORDERED: GABAPENTIN 300 MG CAPSULE PO SCH (21:00)
[2021-12-13 23:07] VITALS: BP 135/60; TEMP 97.8
[2021-12-14 01:05] VITALS: O2SAT 98
[2021-12-14] MEDS ORDERED: PANTOPRAZOLE DR 40 MG TABLET PO SCH (09:00)
== END 2021-12-13 21:00 | DRG 948 ==
LOC: ER 20:41 → ERHOLD 23:32 → OBSVTOIN 23:32 → INTOOBSV 23:32 → 2ND 12-11 00:42 → OBSVTOIN 12-13 08:51
PROVIDERS: ADMIT Internal Medicine; ATTEND Internal Medicine
DX: R53.1 Weakness (principal); Z68.42 Body mass index [BMI] 45.0-49.9, adult; I27.82 Chronic pulmonary embolism; E66.01 Morbid (severe) obesity due to excess calories; K21.9 Gastro-esophageal reflux disease without esophagitis; I89.0 Lymphedema, not elsewhere classified; E78.5 Hyperlipidemia, unspecified; J45.909 Unspecified asthma, uncomplicated; S92.155A Nondisplaced avulsion fracture (chip fracture) of left talus, initial encounter for closed fracture; Z60.2 Problems related to living alone; Z96.653 Presence of artificial knee joint, bilateral; Z79.899 Other long term (current) drug therapy; Z79.01 Long term (current) use of anticoagulants; Z20.822 Contact with and (suspected) exposure to COVID-19; W01.0XXA Fall on same level from slipping, tripping and stumbling without subsequent striking against object, initial encounter; Y92.091 Bathroom in other non-institutional residence as the place of occurrence of the external cause
CPT/HCPCS: 36415; 70450; 72125; 80048; 85025; 87811; 97110; 97161; 97530; 99285; G0378; J2270